=== PATIENT | female | born 1940 | race American Indian/Alaskan Native ===

== ENCOUNTER 2018-12-30 08:24 | Inpatient (IN) | payer MEDICARE, OTHER ==
--- NOTE | 2018-12-30 08:49 | ED PDOC ---
"Arrival/HPI - General Chief Complaint: Pacemaker Problem Time Seen by Provider: 12/30/18 08:27 Historian: Patient - History of Present Illness Narrative History of Present Illness (Text): 12/30/18 08:51 A 78 year old female, whose past medical history includes atrial fibrillation, hypertension, hysterectomy, and CVA, presents to the emergency department complaining of defibrillator dysfunction. Patient reports earlier this morning, she felt 2 sudden shocks and stumbled unto her bed. Mentions she takes Eliquis, and sometimes experiences swelling to legs and ankles bilaterally. Patient denies any dizziness, or any other complaints at this time. PMD: Dr. Alisha Berrios Past Medical History - Provider Review Nursing Documentation Reviewed: Yes - Infectious Disease Hx of Infectious Diseases: None - Reproductive Menopause: Yes - Cardiac Hx Atrial Fibrillation: Yes Hx Hypertension: Yes - Neurological HX Cerebrovascular Accident: Yes - Psychiatric Hx Substance Use: No - Surgical History Hx Hysterectomy: Yes - Anesthesia Hx Anesthesia: No Hx Anesthesia Reactions: No - Suicidal Assessment Feels Threatened In Home Enviroment: No Family/Social History - Physician Review Nursing Documentation Reviewed: Yes Family/Social History: No Known Family HX Smoking Status: Heavy Smoker > 10 Cigarettes Daily Hx Alcohol Use: No Hx Substance Use: No Allergies/Home Meds Allergies/Adverse Reactions: Allergies No Known Allergies Allergy (Unverified 08/05/13 17:42) Home Medications: Home Meds Medication Instructions Recorded Confirmed Enalapril 5 mg DAILY 08/05/13 08/05/13 Vitamin D 50,000 units QWK 08/05/13 08/05/13 Apixaban [Eliquis] 5 mg PO BID 12/30/18 12/31/18 Atorvastatin [Lipitor] 40 mg PO DAILY 12/30/18 12/30/18 Metoprolol Succinate XL [Toprol XL] 25 mg PO DAILY 12/30/18 12/30/18 RX: Dofetilide 125 mcg PO BID 12/30/18 12/30/18 Folic Acid 1 mg PO DAILY 12/31/18 12/31/18 Lisinopril [Zestril] 5 mg PO DAILY 12/31/18 12/31/18 RX: Pantoprazole [Protonix EC Tab] 40 mg PO DAILY 12/31/18 12/31/18 Review of Systems - Physician Review All systems were reviewed & negative as marked: Yes - Review of Systems Cardiovascular: absent: Chest Pain Neurological: absent: Dizziness Physical Exam - Physical Exam Narrative Physical Exam (Text): Gen: VS reviewed, alert, well developed, well nourished, nontoxic, mild distress. ENT: normal pharynx. Eye: EOMI, PERRL. Neck: no JVD, supple, no adenopathy. CV: regular rate, irregularly irregular rhythm, no rubs, no murmur, no gallops, S1, S2, pulses equal and strong. Pulm: no distress, clear to auscultation, no wheeze, no rhonchi, breath sounds equal, no rales. Abd: soft, nontender, no guarding, no rebound, no rigidity, normal bowel sounds. Ext: pitting edema bilaterally to lower extremities. Skin: good color, no rash, no cyanosis. Psych: responds appropriately to questions, normal affect. Neuro: oriented x 3, CN2-12 intact grossly, motor intact, sensation intact. Vital Signs Temp Pulse Resp BP Pulse Ox 12/30/18 08:36 98.0 F 89 18 135/85 99 Medical Decision Making ED Course and Treatment: 12/30/18 08:54 Impression: 78 year old female here for having 2 sudden shocks from her defibrillator. Plan: -- EKG -- Reassess and disposition Progress Notes: 12/30/18 09:38 Cardiology (EPS) Dr. Yash Brito MD Cardiology | Clinical Cardiac Electrophysiology 12/30/18 10:01 ICD device: [employer] -device was placed for v-fib arrest, placed preemptively,hx afib with ablation 2 years ago, hx of inappropriate icd firing [employer] number: [phone] 12/30/18 10:36 I HAVE DISCUSSED THE RHYTHM WITH THE [employer] REP AND HE HAS REVIEWED THE RHYTHM. HE REPORTS THAT THAT THE PATIENT GOES INTO RAPID AFIB IN THE RATE OF 220'S AND THE DEFIBRILLATOR THIS MORNING FIRED TWICE FOR THIS. HE NOTES THERE ARE FREQUENT PVC'S. I HAVE PLACED THE [employer] ELECTRONIC INTERROGATION IN THE CHART FOR REVIEW. [employer] REP ?TAWANNA: [phone] 12/30/18 12:38 12/30/18 12:41 12/30/18 12:[address] santos, tele obs. case d/w dr. gold, cardiology, recommends starting cardizem 60mg TID and will see pt in consultation. 12/30/18 13:25 case discussed with , patient's EPS cardiologistm he has relayed the patient's medication list 12/30/18 18:43 i was called to bedside to evaluate and sudden increase in patient's heart rate in the 180's. patient seen at bedside and offers no physical complaints. 12 lead ekg shows rapid afib at 187 bpm, nml qrs. lopressor 5mg given with no significant change in heart rate- will add cardizem.call placed to dr. santos and copier and printer field technician. 12/30/18 18:52 dr. santos aware of patient new status 12/30/18 19:[address] ibarra to icu - Critical Care Critical Care Minutes: 30 minutes - Scribe Statement The provider has reviewed the documentation as recorded by the Lorie Goldstein Provider Scribe Attestation: All medical record entries made by the Scribe were at my direction and personally dictated by me. I have reviewed the chart and agree that the record accurately reflects my personal performance of the history, physical exam, medical decision making, and the department course for this patient. I have also personally directed, reviewed, and agree with the discharge instructions and disposition. Disposition/Present on Arrival - Present on Arrival Any Indicators Present on Arrival: No History of DVT/PE: No History of Uncontrolled Diabetes: No Urinary Catheter: No History of Decub. Ulcer: No History Surgical Site Infection Following: None - Disposition Have Diagnosis and Disposition been Completed?: Yes Diagnosis: Defibrillator discharge, Atrial fibrillation Disposition: HOSPITALIZED Disposition Time: 12:45 Patient Plan: Admission Patient Problems: Current Active Problems Problem Status Onset Atrial fibrillation Acute Cardiac arrest with ventricular fibrillation Acute Defibrillator discharge Acute Hypertension Acute ICD (implantable cardioverter-defibrillator) in place Acute S/P ablation of atrial fibrillation Acute Condition: GUARDED"
[2018-12-30 09:18] LABS: MEAN CELL VOLUME 84.2 fl (80.0-105.0); MEAN CORPUSCULAR HEMOGLOBIN 25.9 pg (25.0-35.0); MEAN CORPUSCULAR HGB CONC 30.8 g/dl (31.0-37.0); MEAN PLATELET VOLUME 11.2 fl (7.0-11.0); RBC 5.01 10^6/uL (3.5-6.1); RED CELL DISTRIBUTION WIDTH 14.1 % (11.5-14.5); WHITE BLOOD COUNT 6.7 10^3/uL (4.5-11.0)
[2018-12-30 09:21] LABS: ALB/GLOB RATIO 1.3 (1.1-1.8); ALBUMIN 3.9 g/dL (3.0-4.8); ALT/SGPT 14 U/L (7-56); AST/SGOT 28 U/L (14-36); BLOOD UREA NITROGEN 15 mg/dL (7-21); CALCIUM 9.1 mg/dL (8.4-10.5); GFR NON-AFRICAN AMERICAN > 60
[2018-12-30 09:33] LABS: TROPONIN I 0.02 ng/mL
--- NOTE | 2018-12-30 11:11 | CARD ---
APPROVED REPORT Date of service: 12/30/2018 EKG Measurement Heart [id number] <Conclusion> Sinus rhythm with marked sinus arrhythmia with short NV with frequent premature ventricular complexes Incomplete right bundle branch block Left anterior fascicular block Possible Lateral infarct, age undetermined Abnormal ECG
--- NOTE | 2018-12-30 13:30 | RAD ---
Date of service: 12/30/2018 HISTORY: chest pain COMPARISON: No prior. FINDINGS: LUNGS: No active pulmonary disease. PLEURA: No significant pleural effusion identified, no pneumothorax apparent. CARDIOVASCULAR: Mild aortic atherosclerotic calcification present. Heart size within range of normal. In situ bipolar pacemaker/defibrillator. OSSEOUS STRUCTURES: No significant abnormalities. VISUALIZED UPPER ABDOMEN: Normal. OTHER FINDINGS: None. IMPRESSION: No active disease.
[2018-12-30 14:53] VITALS: BMI 23.6
[2018-12-30] MEDS ORDERED: Pneumococcal 23-Valent Vaccine IM ONE (15:33)
[2018-12-30] MEDS ORDERED: Influenza Vaccine 60 mcg/0.5 mL SYR (4YR UP) IM ONE (15:33)
[2018-12-30] MEDS ORDERED: Potassium Chloride 20 mEq ER Tab PO STA (15:35)
[2018-12-30] MEDS ORDERED: Potassium Chloride 20 mEq/15 ml LIQ UD PO STA (17:00)
--- NOTE | 2018-12-30 17:41 | CON ---
DATE: 12/30/2018 CARDIOLOGY CONSULTATION HISTORY: The patient is a 78-year-old woman, who presents with defibrillator shocking her twice. Interrogation of the defibrillator revealed rapid atrial fibrillation. PAST MEDICAL HISTORY: The patient's past medical history includes paroxysmal atrial fibrillation, hypertension, as well as a previous CVA. In addition, the patient is on cholesterol medications suggesting that she has had a long, long history of hypercholesterolemia. She is currently on Eliquis at home for presumably atrial fibrillation. She denies chest pain, denies shortness of breath. SOCIAL HISTORY: The patient does not smoke. REVIEW OF SYSTEMS: Fourteen-point review of systems was reviewed. Other than some mild pedal edema, there are no other cardiac complaints. PHYSICAL EXAMINATION: VITAL SIGNS: Blood pressure is 132/61, the heart rate is normal sinus rhythm in the 70s. NECK: Negative JVD. LUNGS: Without rales. CARDIAC: Heart rate S1, S2. EXTREMITIES: Trace edema. EKG shows no acute changes, normal sinus rhythm with no acute changes. Hemoglobin is 13. BUN and creatinine are normal. Potassium is 3.6 with a magnesium of 2.2. Troponins are negative x2. Glucose is 138. IMPRESSION: 1. Defibrillator shock secondary to rapid atrial fibrillation. 2. Probable cardiomyopathy. 3. History of implantable cardioverter defibrillator placement. 4. Number for history of cerebrovascular accident. 5. Paroxysmal atrial fibrillation. 6. Diabetes mellitus. 7. Hypercholesterolemia. PLAN: Given these findings, we will increase her beta-blockers from 25-50 daily. In addition, we will replace her potassium. Echocardiogram has been ordered for the morning. Ruben Bailey MD
[2018-12-30] MEDS ORDERED: Metoprolol 1 mg/ml Inj ONE (18:35)
[2018-12-30] MEDS ORDERED: Metoprolol 1 mg/ml Inj IVP STA (18:42)
[2018-12-30] MEDS ORDERED: diltiaZEM IVPB 100mg in NS 100 ML IV PRN (18:42)
[2018-12-30] MEDS: diltiaZEM IVPB 100mg in NS 100 ML IV PRN ×2 (19:34→20:03)
--- NOTE | 2018-12-30 20:13 | CP.PCM.CON ---
<Zack Collins - Last Filed: 12/30/18 20:36> History of Present Illness - History of Present Illness History of Present Illness: ICU Consultation CC: Rapid Atrial Fibrillation/Defibrillator Firing HPI: Mrs. Jones is a 78 year old female with a past medical history significant for atrial fibrillation s/p ablation (on Eliquis), ventricular fibrillation s/p defibrillator (on Dofetilide), previous CVA, HTN, and HLD who presented after her ICD fired twice this morning. Patient reports that earlier this morning while resting, she suddenly felt her ICD fire twice without any symptoms prior to this or after this. She does note that yesterday she walked further than she normally does after having a heated argument with her sister. She reports that her ICD has gone off in the past but she reports that she does not know why that the ICD went off on those prior occasions. Patient was orig inally admitted to the telemetry floor but while being held in the ED, she went into atrial fibrillation with RVR. Based on this, patient was started on Cardizem gtt. She is currently resting comfortably without complaints and 12 point ROS is unremarkable. PMH: As stated above PSH: Hysterectomy, Catheter Ablation, Defibrillator Placement Family History: Denies Social History: Former smoker with ~20 year pack smoking history; Denies any alcohol or illicit drug use; Lives at home with her sister; Independent with ADL's Allergies: NKDA Home Medications: As per JAN PMD: Dr. Gottlieb Review of Systems - Review of Systems Review of Systems: As stated in HPI, otherwise negative Past Patient History - Infectious Disease Hx of Infectious Diseases: None - Past Social History Smoking Status: Heavy Smoker > 10 Cigarettes Daily - CARDIAC Hx Atrial Fibrillation: Yes Hx Hypertension: Yes - NEUROLOGICAL HX Cerebrovascular Accident: Yes - MUSCULOSKELETAL/RHEUMATOLOGICAL Hx Falls: No - PSYCHIATRIC Hx Substance Use: No - SURGICAL HISTORY Hx Hysterectomy: Yes - ANESTHESIA Hx Anesthesia: No Hx Anesthesia Reactions: No Meds Allergies/Adverse Reactions: Allergies Allergy/AdvReac Type Severity Reaction Status Date / Time No Known Allergies Allergy Unverified 08/05/13 17:42 - Medications Medications: Current Medications Apixaban (Eliquis) 5 mg PO DAILY DEBORAH; Protocol Atorvastatin Calcium (Lipitor) 40 mg PO DAILY DEBORAH diltiaZEM IVPB 100mg in NS (Cardizem 100mg In Ns) 100 mls @ 5 mls/hr IV .Q20H PRN; Protocol PRN Reason: TITRATE PER MD ORDER Last Admin: 12/30/18 19:34 Dose: 5 mg/hr, 5 mls/hr Metoprolol Succinate (Toprol Xl) 50 mg PO DAILY DEBORAH Non-Formulary Medication (Dofetilide [Dofetilide]) 125 mcg PO BID DEBORAH Physical Exam - Constitutional Appears: Non-toxic, No Acute Distress - Head Exam Head Exam: ATRAUMATIC, NORMOCEPHALIC - Eye Exam Eye Exam: EOMI, Normal appearance, PERRL. absent: Conjunctival injection, Nystagmus, Periorbital swelling, Periorbital tenderness, Scleral icterus Pupil Exam: NORMAL ACCOMODATION, PERRL. absent: Fixed, Irregular, Miosis, Mydriatic, Unequal - ENT Exam ENT Exam: Mucous Membranes Moist, Normal Exam - Neck Exam Neck exam: Positive for: Full Rom, Normal Inspection - Respiratory Exam Respiratory Exam: Clear to Auscultation Bilateral, NORMAL BREATHING PATTERN - Cardiovascular Exam Cardiovascular Exam: Tachycardia, Irregular Rhythm - GI/Abdominal Exam GI & Abdominal Exam: Normal Bowel Sounds, Soft. absent: Tenderness - Extremities Exam Extremities exam: Positive for: normal capillary refill, normal inspection, pedal pulses present. Negative for: calf tenderness, pedal edema - Neurological Exam Neurological exam: Alert, CN II-XII Intact, Oriented x3, Reflexes Normal - Psychiatric Exam Psychiatric exam: Normal Affect, Normal Mood - Skin Skin Exam: Dry, Intact, Normal Color, Warm Results - Vital Signs Recent Vital Signs: Last Vital Signs Temp 98 F 12/30/18 19:00 Pulse 171 H 12/30/18 19:29 Resp 20 12/30/18 19:29 BP 117/67 12/30/18 19:00 Pulse Ox 99 12/30/18 19:29 - Labs Result Diagrams: 12/30/18 09:06 12/30/18 09:06 Labs: Laboratory Results - last 24 hr 12/30/18 12/30/18 12/30/18 09:06 09:06 09:06 WBC 6.7 RBC 5.01 Hgb 13.0 Hct 42.2 MCV 84.2 MCH 25.9 MCHC 30.8 L RDW 14.1 Plt Count 388 MPV 11.2 H APTT 39.3 H Sodium 144 Potassium 3.5 L Chloride 109 H Carbon Dioxide 28 Anion Gap 10 BUN 15 Creatinine 0.7 Est GFR ( Amer) > 60 Est GFR (Non-Af Amer) > 60 Random Glucose 138 H Calcium 9.1 Phosphorus Magnesium Total Bilirubin 0.5 AST 28 ALT 14 Alkaline Phosphatase 96 Lactate Dehydrogenase 575 Total Creatine Kinase 99 Troponin I 0.02 Total Protein 6.9 Albumin 3.9 Globulin 3.0 Albumin/Globulin Ratio 1.3 12/30/18 12/30/18 12/30/18 13:37 16:01 19:28 WBC RBC Hgb Hct MCV MCH MCHC RDW Plt Count MPV APTT Sodium Potassium Chloride Carbon Dioxide Anion Gap BUN Creatinine Est GFR ( Amer) Est GFR (Non-Af Amer) Random Glucose Calcium Phosphorus 2.7 Magnesium 2.2 Total Bilirubin AST ALT Alkaline Phosphatase Lactate Dehydrogenase Total Creatine Kinase Troponin I 0.03 D Total Protein Albumin Globulin Albumin/Globulin Ratio Assessment & Plan - Assessment and Plan (Free Text) Assessment: 78 year old female with a past medical history significant for atrial fibrillation s/p ablation (on Eliquis), ventricular fibrillation s/p defibrillator (on Dofetilide), previous CVA, HTN, and HLD who presented after her ICD fired twice this morning. Plan: 1. Rapid Atrial Fibrillation -Started on Cardizem gtt at 5mg/hr -Started on Toprol XL -Continue home Eliquis -ICU monitoring -Cardiology consulted and aware present clinical condition; All recommendations appreciated GI Prophylaxis: Pepcid DVT Prophylaxis: Eliquis Patient seen and case discussed with attending, Dr. Herrera. Zack Collins PGY2 - Date & Time Date: 12/30/18 Time: 20:52 <Everardo Herrera - Last Filed: 12/30/18 22:09> Meds - Medications Medications: Current Medications Apixaban (Eliquis) 5 mg PO DAILY DEBORAH; Protocol Atorvastatin Calcium (Lipitor) 40 mg PO DAILY DEBORAH Famotidine (Pepcid) 40 mg PO HS DEBORAH diltiaZEM IVPB 100mg in NS (Cardizem 100mg In Ns) 100 mls @ 5 mls/hr IV .Q20H PRN; Protocol PRN Reason: TITRATE PER MD ORDER Last Admin: 12/30/18 20:03 Dose: 10 mg/hr, 10 mls/hr Metoprolol Succinate (Toprol Xl) 50 mg PO DAILY [facility] Non-Formulary Medication (Dofetilide [Dofetilide]) 125 mcg PO BID [facility] Results - Vital Signs Recent Vital Signs: Last Vital Signs Temp 98 F 12/30/18 19:00 Pulse 118 H 12/30/18 20:41 Resp 18 12/30/18 20:41 BP 129/77 12/30/18 20:41 Pulse Ox 100 12/30/18 20:41 - Labs Result Diagrams: 12/30/18 09:06 12/30/18 09:06 Labs: Laboratory Results - last 24 hr 12/30/18 12/30/18 12/30/18 09:06 09:06 09:06 WBC 6.7 RBC 5.01 Hgb 13.0 Hct 42.2 MCV 84.2 MCH 25.9 MCHC 30.8 L RDW 14.1 Plt Count 388 MPV 11.2 H APTT 39.3 H Sodium 144 Potassium 3.5 L Chloride 109 H Carbon Dioxide 28 Anion Gap 10 BUN 15 Creatinine 0.7 Est GFR ( Amer) > 60 Est GFR (Non-Af Amer) > 60 Random Glucose 138 H Calcium 9.1 Phosphorus Magnesium Total Bilirubin 0.5 AST 28 ALT 14 Alkaline Phosphatase 96 Lactate Dehydrogenase 575 Total Creatine Kinase 99 Troponin I 0.02 Total Protein 6.9 Albumin 3.9 Globulin 3.0 Albumin/Globulin Ratio 1.3 TSH 3rd Generation 12/30/18 12/30/18 12/30/18 13:37 16:01 19:28 WBC RBC Hgb Hct MCV MCH MCHC RDW Plt Count MPV APTT Sodium Potassium Chloride Carbon Dioxide Anion Gap BUN Creatinine Est GFR ( Amer) Est GFR (Non-Af Amer) Random Glucose Calcium Phosphorus 2.7 Magnesium 2.2 Total Bilirubin AST ALT Alkaline Phosphatase Lactate Dehydrogenase Total Creatine Kinase Troponin I 0.03 D Total Protein Albumin Globulin Albumin/Globulin Ratio TSH 3rd Generation 12/30/18 19:28 WBC RBC Hgb Hct MCV MCH MCHC RDW Plt Count MPV APTT Sodium Potassium Chloride Carbon Dioxide Anion Gap BUN Creatinine Est GFR ( Amer) Est GFR (Non-Af Amer) Random Glucose Calcium Phosphorus Magnesium Total Bilirubin AST ALT Alkaline Phosphatase Lactate Dehydrogenase Total Creatine Kinase Troponin I Total Protein Albumin Globulin Albumin/Globulin Ratio TSH 3rd Generation < 0.02 L Attending/Attestation - Attestation I have personally seen and examined this patient.: Yes I have fully participated in the care of the patient.: Yes I have reviewed all pertinent clinical information: Yes Notes (Text): 12/30/18 21:51 Patient was seen when she was in the ER bd # 4. Asymptomatic, but heart rate going to 130's, rhythm was atrial fibrillation. Events in the ER were noted. Medical record was reviewed. Agree with consult note. Will keep in CCU for monitoring. CCT:30Minutes. 12/30/18 22:09
--- NOTE | 2018-12-31 00:20 | HP ---
DATE OF EXAM: 12/30/2018 HISTORY OF PRESENT ILLNESS: I was called on through the emergency room to see this nice young lady. She is a 78-year-old -[place] female who presents to the emergency room complaining of defibrillator dysfunction. She had two sudden shocks stumbled on to her bed. She has swelling of the legs at times. She is a 78-year-old with history of atrial fibrillation, hypertension, hysterectomy, CVA. She has defibrillator. It has been dysfunctioning and getting shocks. She has hypertension. She has CVA. FAMILY HISTORY: She has no known family history. SOCIAL HISTORY: Still smokes cigarettes. No alcohol. No drugs. ALLERGIES: NO KNOWN DRUG ALLERGIES. MEDICATIONS: She is on Vasotec, vitamin D, Eliquis. REVIEW OF SYSTEMS: GENERAL: Well-developed, well-nourished. She is alert. She is comfortable. HEENT: No vision or hearing changes. No sore throat. CHEST: No chest pain. No dizziness, but felt the change in her chest like quick pace feeling in her chest, not a palpitation, just felt like a vibration in her chest. ABDOMEN: Soft, nontender, positive bowel sounds. No abdominal pain. No nausea or vomiting. EXTREMITIES: She can move all four extremities. SKIN: No skin issues that she knows of. PHYSICAL EXAMINATION VITAL SIGNS: She has 98 temperature, 89 pulse, 18 respiratory rate, 135/85 blood pressure, 99% O2 sat on room air. GENERAL: Well-developed, well-nourished, nontoxic, comfortable at this time. HEENT: Head is atraumatic, normocephalic. Extraocular muscles are intact. Pupils are equal, reactive to light. NECK: Supple. No JVD. HEART: Regular rate. Normal S1 and S2. LUNGS: Decreased breath sounds. Poor inspiration. No wheezes or rhonchi. ABDOMEN: Soft, nontender. Positive bowel sounds. No guarding. No rebound. No CVA tenderness. EXTREMITIES: Have no edema. SKIN: Has fair turgor. No apparent rashes appreciative or ulcers appreciative at this time. NEUROLOGIC: Calm, normal affect. Cranial nerves II through XII grossly intact. Grossly motor intact. LABORATORY DATA: She has multiple tests done. Chest x-ray was clear. EKG showed sinus rhythm with marked sinus with sharp NE with frequent premature ventricular complex with incomplete right bundle branch block, left anterior fascicular block, lateral infarct age undetermined. She has sodium 144, potassium 3.5, I replaced the potassium, BUN 15, creatinine 0.7, GFR is 62, sugar is 138, I am checking the hemoglobin A1c, calcium is 0.1, magnesium is 2.2, total bili is 0.5, AST is 28, ALT is 14, alk phos 76, lactate dehydrogenase is 575, total creatine kinase is 99, troponin I is 0.02, total protein 6.9, albumin 3.9, globulin 3. A PTT is 39.3. IMPRESSION: She is here for defibrillator firing, chest pain. She will be here, we are checking out the troponins. She had a consult with blankmaker. To be on telemetry observation. Rick Gottlieb DO MTDD
[2018-12-31] MEDS: diltiaZEM IVPB 100mg in NS 100 ML IV PRN (05:08)
[2018-12-31 07:21] LABS: HEMOGLOBIN 12.5 g/dL (12.0-16.0); MEAN CELL VOLUME 84.6 fl (80.0-105.0); MEAN CORPUSCULAR HGB CONC 29.6 g/dl (31.0-37.0); MEAN PLATELET VOLUME 11.1 fl (7.0-11.0); RED CELL DISTRIBUTION WIDTH 14.4 % (11.5-14.5); WHITE BLOOD COUNT 6.2 10^3/uL (4.5-11.0)
[2018-12-31 07:31] LABS: ALB/GLOB RATIO 1.1 (1.1-1.8); ALBUMIN 3.6 g/dL (3.0-4.8); ALT/SGPT 16 U/L (7-56); AST/SGOT 31 U/L (14-36); BLOOD UREA NITROGEN 16 mg/dL (7-21); CALCIUM 9.1 mg/dL (8.4-10.5); GFR NON-AFRICAN AMERICAN > 60
--- NOTE | 2018-12-31 07:32 | CP.CCUPN ---
<Jean Terry - Last Filed: 12/31/18 14:53> CCU Subjective - Physician Review Subjective (Free Text): 12/31/18 09:34 Patient seen and examined this AM at bedside. Patient noted to be resting comfortably in bed with elevated heart rate. Overnight events include elevated heart rate requiring increased doses of cardizem and lopressor. Patient denies chest pain, shortness of breath, abdominal pain, fever, chills. CCU Objective - Vital Signs / Intake & Output Vital Signs (Last 4 hours): Vital Signs Temp Pulse Resp BP Pulse Ox 12/31/18 07:20 126 H 16 100 12/31/18 07:10 117 H 18 100 12/31/18 07:08 123 H 18 124/53 L 100 12/31/18 07:07 131 H 18 117/64 100 12/31/18 07:06 120 H 19 124/75 100 12/31/18 07:05 137 H 19 115/52 L 100 12/31/18 07:04 110 H 16 118/68 100 12/31/18 07:00 118 H 16 100 12/31/18 06:50 122 H 11 L 100 12/31/18 06:40 143 H 16 100 12/31/18 06:33 125 H 15 115/57 L 100 12/31/18 06:30 112 H 16 100 12/31/18 06:20 125 H 27 H 100 12/31/18 06:10 109 H 100 12/31/18 06:00 107 H 20 100 12/31/18 05:50 93 H 13 100 12/31/18 05:40 97 H 12 100 12/31/18 05:32 95 H 14 122/63 100 12/31/18 05:30 111 H 14 100 12/31/18 05:20 91 H 15 100 12/31/18 05:10 99 H 15 100 12/31/18 05:00 119 H 16 100 12/31/18 04:50 121 H 41 H 100 12/31/18 04:40 104 H 100 12/31/18 04:33 92 H 18 106/44 L 100 12/31/18 04:30 88 15 100 12/31/18 04:20 89 16 100 12/31/18 04:10 90 14 100 12/31/18 04:00 97.9 F 85 12 100 12/31/18 03:50 77 16 100 12/31/18 03:40 77 15 100 Intake and Output (Last 8hrs): Intake & Output 12/30/18 12/31/18 12/31/18 22:59 06:59 14:59 Intake Total 2.5 220 Output Total 300 Balance 2.5 -80 Weight 122 lb 6 oz Intake: IV 2.5 100 Oral 120 Output: Urine 300 Urine, Voided 300 Other: # Bowel Movements 0 - Physical Exam Head: Positive for: Atraumatic, Normocephalic Pupils: Positive for: PERRL Extroacular Muscles: Positive for: EOMI Conjunctiva: Positive for: Normal Mouth: Positive for: Moist Mucous Membranes Neck: Positive for: Normal Range of Motion Respiratory/Chest: Positive for: Clear to Auscultation. Negative for: Rales, Rhonchi Cardiovascular: Positive for: Irregular Rhythm, Tachycardic. Negative for: Rub Abdomen: Positive for: Normal Bowel Sounds. Negative for: Tenderness, Distention Upper Extremity: Positive for: Normal Inspection. Negative for: Cyanosis, Edema Lower Extremity: Positive for: Normal Inspection. Negative for: Edema Neurological: Positive for: GCS=15, CN II-XII Intact, Speech Normal, Motor Func Grossly Intact, Normal Sensory Function Skin: Positive for: Warm, Dry Psychiatric: Positive for: Alert, Oriented x 3, Normal Insight - Medications Active Medications: Active Medications Generic Name Dose Route Start Last Admin Trade Name Freq PRN Reason Stop Dose Admin Apixaban 5 mg 12/31/18 10:00 Eliquis PO DAILY [facility] Protocol Atorvastatin Calcium 40 mg 12/31/18 10:00 Lipitor PO DAILY [facility] Famotidine 40 mg 12/30/18 22:00 12/30/18 22:27 Pepcid PO 40 mg HS DEBORAH Administration diltiaZEM IVPB 100mg in NS 100 mls @ 5 mls/hr 12/30/18 19:30 12/31/18 05:10 Cardizem 100mg In Ns IV 15 mg/hr .Q20H PRN 15 mls/hr TITRATE PER MD ORDER Titration Protocol 5 MG/HR Metoprolol Succinate 50 mg 12/31/18 10:00 Toprol Xl PO DAILY [facility] Non-Formulary Medication 125 mcg 12/30/18 18:00 Dofetilide [Dofetilide] PO BID DEBORAH - Patient Studies Lab Studies: Lab Studies 12/31/18 12/30/18 12/30/18 Range/Units 06:45 23:45 19:28 WBC (4.5-11.0) 10^3/uL RBC (3.5-6.1) 10^6/uL Hgb (12.0-16.0) g/dL Hct (36.0-48.0) % MCV (80.0-105.0) fl MCH (25.0-35.0) pg MCHC (31.0-37.0) g/dl RDW (11.5-14.5) % Plt Count (120.0-450.0) 10^3/uL MPV (7.0-11.0) fl APTT (26.9-38.3) Seconds Sodium 143 (132-148) mmol/L Potassium 4.2 (3.6-5.0) mmol/L Chloride 111 H (98-107) mmol/L Carbon Dioxide 28 (21-33) mmol/L Anion Gap 8 L (10-20) BUN 16 (7-21) mg/dL Creatinine 0.7 (0.7-1.2) mg/dl Est GFR ( Amer) > 60 Est GFR (Non-Af Amer) > 60 Random Glucose 112 H (70-110) mg/dL Calcium 9.1 (8.4-10.5) mg/dL Phosphorus (2.5-4.5) mg/dL Magnesium (1.7-2.2) mg/dL Total Bilirubin 0.6 (0.2-1.3) mg/dL AST 31 (14-36) U/L ALT 16 (7-56) U/L Alkaline Phosphatase 96 (38-126) U/L Lactate Dehydrogenase (333-699) U/L Total Creatine Kinase (35-230) U/L Troponin I 0.03 ng/mL Total Protein 6.8 (5.8-8.3) g/dL Albumin 3.6 (3.0-4.8) g/dL Globulin 3.2 gm/dL Albumin/Globulin Ratio 1.1 (1.1-1.8) TSH 3rd Generation < 0.02 L (0.46-4.68) mIU/mL 0212/30/18 12/30/18 Range/Units 19:28 16:01 13:37 WBC (4.5-11.0) 10^3/uL RBC (3.5-6.1) 10^6/uL Hgb (12.0-16.0) g/dL Hct (36.0-48.0) % MCV (80.0-105.0) fl MCH (25.0-35.0) pg MCHC (31.0-37.0) g/dl RDW (11.5-14.5) % Plt Count (120.0-450.0) 10^3/uL MPV (7.0-11.0) fl APTT (26.9-38.3) Seconds Sodium (132-148) mmol/L Potassium (3.6-5.0) mmol/L Chloride (98-107) mmol/L Carbon Dioxide (21-33) mmol/L Anion Gap (10-20) BUN (7-21) mg/dL Creatinine (0.7-1.2) mg/dl Est GFR ( Amer) Est GFR (Non-Af Amer) Random Glucose (70-110) mg/dL Calcium (8.4-10.5) mg/dL Phosphorus 2.7 (2.5-4.5) mg/dL Magnesium 2.2 (1.7-2.2) mg/dL Total Bilirubin (0.2-1.3) mg/dL AST (14-36) U/L ALT (7-56) U/L Alkaline Phosphatase (38-126) U/L Lactate Dehydrogenase (333-699) U/L Total Creatine Kinase (35-230) U/L Troponin I 0.03 D ng/mL Total Protein (5.8-8.3) g/dL Albumin (3.0-4.8) g/dL Globulin gm/dL Albumin/Globulin Ratio (1.1-1.8) TSH 3rd Generation (0.46-4.68) mIU/mL 12/30/18 12/30/18 12/30/18 Range/Units 09:06 09:06 09:06 WBC 6.7 (4.5-11.0) 10^3/uL RBC 5.01 (3.5-6.1) 10^6/uL Hgb 13.0 (12.0-16.0) g/dL Hct 42.2 (36.0-48.0) % MCV 84.2 (80.0-105.0) fl MCH 25.9 (25.0-35.0) pg MCHC 30.8 L (31.0-37.0) g/dl RDW 14.1 (11.5-14.5) % Plt Count 388 (120.0-450.0) 10^3/uL MPV 11.2 H (7.0-11.0) fl APTT 39.3 H (26.9-38.3) Seconds Sodium 144 (132-148) mmol/L Potassium 3.5 L (3.6-5.0) mmol/L Chloride 109 H (98-107) mmol/L Carbon Dioxide 28 (21-33) mmol/L Anion Gap 10 (10-20) BUN 15 (7-21) mg/dL Creatinine 0.7 (0.7-1.2) mg/dl Est GFR ( Amer) > 60 Est GFR (Non-Af Amer) > 60 Random Glucose 138 H (70-110) mg/dL Calcium 9.1 (8.4-10.5) mg/dL Phosphorus (2.5-4.5) mg/dL Magnesium (1.7-2.2) mg/dL Total Bilirubin 0.5 (0.2-1.3) mg/dL AST 28 (14-36) U/L ALT 14 (7-56) U/L Alkaline Phosphatase 96 (38-126) U/L Lactate Dehydrogenase 575 (333-699) U/L Total Creatine Kinase 99 (35-230) U/L Troponin I 0.02 ng/mL Total Protein 6.9 (5.8-8.3) g/dL Albumin 3.9 (3.0-4.8) g/dL Globulin 3.0 gm/dL Albumin/Globulin Ratio 1.3 (1.1-1.8) TSH 3rd Generation (0.46-4.68) mIU/mL Laboratory Results - last 24 hr 12/30/18 12/30/18 12/30/18 09:06 09:06 09:06 WBC 6.7 RBC 5.01 Hgb 13.0 Hct 42.2 MCV 84.2 MCH 25.9 MCHC 30.8 L RDW 14.1 Plt Count 388 MPV 11.2 H APTT 39.3 H Sodium 144 Potassium 3.5 L Chloride 109 H Carbon Dioxide 28 Anion Gap 10 BUN 15 Creatinine 0.7 Est GFR ( Amer) > 60 Est GFR (Non-Af Amer) > 60 Random Glucose 138 H Calcium 9.1 Phosphorus Magnesium Total Bilirubin 0.5 AST 28 ALT 14 Alkaline Phosphatase 96 Lactate Dehydrogenase 575 Total Creatine Kinase 99 Troponin I 0.02 Total Protein 6.9 Albumin 3.9 Globulin 3.0 Albumin/Globulin Ratio 1.3 TSH 3rd Generation 12/30/18 12/30/18 12/30/18 13:37 16:01 19:28 WBC RBC Hgb Hct MCV MCH MCHC RDW Plt Count MPV APTT Sodium Potassium Chloride Carbon Dioxide Anion Gap BUN Creatinine Est GFR ( Amer) Est GFR (Non-Af Amer) Random Glucose Calcium Phosphorus 2.7 Magnesium 2.2 Total Bilirubin AST ALT Alkaline Phosphatase Lactate Dehydrogenase Total Creatine Kinase Troponin I 0.03 D Total Protein Albumin Globulin Albumin/Globulin Ratio TSH 3rd Generation 12/30/18 12/30/18 12/31/18 19:28 23:45 06:45 WBC RBC Hgb Hct MCV MCH MCHC RDW Plt Count MPV APTT Sodium 143 Potassium 4.2 Chloride 111 H Carbon Dioxide 28 Anion Gap 8 L BUN 16 Creatinine 0.7 Est GFR ( Amer) > 60 Est GFR (Non-Af Amer) > 60 Random Glucose 112 H Calcium 9.1 Phosphorus Magnesium Total Bilirubin 0.6 AST 31 ALT 16 Alkaline Phosphatase 96 Lactate Dehydrogenase Total Creatine Kinase Troponin I 0.03 Total Protein 6.8 Albumin 3.6 Globulin 3.2 Albumin/Globulin Ratio 1.1 TSH 3rd Generation < 0.02 L Radiology Impressions: Radiology Impressions Chest X-Ray 12/30/18 09:43 IMPRESSION: No active disease. EKG/Cardiology Studies: Cardiology / EKG Studies 12/30/18 09:00 ELECTROCARDIOGRAM Stat Comment: Reason For Exam: defibrillator fired 12/30/18 18:30 EKG [ELECTROCARDIOGRAM] Stat Comment: Reason For Exam: CHEST PAIN 12/30/18 18:58 EKG [ELECTROCARDIOGRAM] Stat Comment: Reason For Exam: CHEST PAIN Review of Systems - Review of Systems All systems: reviewed and no additional remarkable complaints except (as mentioned in HPI) Critical Care Progress Note - Nutrition Nutrition: Nutrition Category Date Time Status Heart Healthy Diet [DIET] Diets 12/30/18 Breakfast Active Assessment/Plan - Assessment and Plan (Free Text) Assessment: 78 year old femlae with past medical history of a fib s/p ablation rate control with toprol xl and anticoagulated with eliquis, ventricular fibrillation s/p defibrillator, previous CVA without residual deficit, HTN, HLD who is admitted for uncontrolled atrial fibrillation with RVR Plan: Neuro: AAOx3 Monitor Mentation Pulm: Supplemental oxygen, maintain SaO2 >90% Cardio: Atrial fibrillation with RVR on eliquis -Permanent atrial fibrillation -Echocardiogram ordered pending results -Continue eliquis for anticoagluation -Continue Cardizem gtt, metoprolol 50mg BID -Device interrogated yesterday evening -Cardiology consulted and following patient - Start PO cardizem 30 TID with plans to titrate off cardizem gtt HTN, HLD -Continue Toprol 50 bid, continue statin -Maintain MAP >65mmHg GI: HHD GI prophylaxis Renal: Maintain euvolemia, monitor UOP Monitor and replete electrolytes as necessary Endo: Hyperthyroidism -TSH level 0.02 -f/u Free T3, T4, thyroglobulin antibody, thyroid peroxidase antibody -Endo consult with Dr. iVcki Min -Holding thyroid supplementation at this time until endo eval Maintian blood glucose 140-180 ID: Afebrile, No leukocytosis GI prophylaxis DVT prophylaxis Code Status: Full Code Patient seen, case and plan discussed with attending Dr. Peraza <Wolfgang Peraza - Last Filed: 12/31/18 14:56> CCU Objective - Vital Signs / Intake & Output Intake and Output (Last 8hrs): Intake & Output 12/30/18 12/31/18 12/31/18 22:59 06:59 14:59 Intake Total 2.5 220 Output Total 300 Balance 2.5 -80 Weight 122 lb 6 oz Intake: IV 2.5 100 Oral 120 Output: Urine 300 Urine, Voided 300 Other: # Bowel Movements 0 - Medications Active Medications: Active Medications Generic Name Dose Route Start Last Admin Trade Name Freq PRN Reason Stop Dose Admin Apixaban 5 mg 12/31/18 11:39 Eliquis PO Q12 [facility] Protocol Atorvastatin Calcium 40 mg 12/31/18 10:00 12/31/18 10:17 Lipitor PO 40 mg DAILY [facility] Administration Diltiazem HCl 60 mg 12/31/18 14:00 12/31/18 13:26 Cardizem PO 60 mg TID DEBORAH Administration Famotidine 40 mg 12/30/18 22:00 12/30/18 22:27 Pepcid PO 40 mg HS DEBORAH Administration diltiaZEM IVPB 100mg in NS 100 mls @ 5 mls/hr 12/30/18 19:30 12/31/18 05:10 Cardizem 100mg In Ns IV 15 mg/hr .Q20H PRN 15 mls/hr TITRATE PER MD ORDER Titration Protocol 5 MG/HR Metoprolol Succinate 50 mg 12/31/18 10:00 12/31/18 08:12 Toprol Xl PO 50 mg DAILY [facility]BORAH Administration Non-Formulary Medication 125 mcg 12/30/18 18:00 12/31/18 10:31 Dofetilide [Dofetilide] PO Not Given BID DBEORAH - Patient Studies Lab Studies: Lab Studies 12/31/18 12/31/18 12/31/18 Range/Units 10:15 06:45 06:45 WBC (4.5-11.0) 10^3/uL RBC (3.5-6.1) 10^6/uL Hgb (12.0-16.0) g/dL Hct (36.0-48.0) % MCV (80.0-105.0) fl MCH (25.0-35.0) pg MCHC (31.0-37.0) g/dl RDW (11.5-14.5) % Plt Count (120.0-450.0) 10^3/uL MPV (7.0-11.0) fl Sodium (132-148) mmol/L Potassium (3.6-5.0) mmol/L Chloride (98-107) mmol/L Carbon Dioxide (21-33) mmol/L Anion Gap (10-20) BUN (7-21) mg/dL Creatinine (0.7-1.2) mg/dl Est GFR ( Amer) Est GFR (Non-Af Amer) Random Glucose (70-110) mg/dL Calcium (8.4-10.5) mg/dL Phosphorus 3.1 (2.5-4.5) mg/dL Magnesium 2.2 (1.7-2.2) mg/dL Total Bilirubin (0.2-1.3) mg/dL AST (14-36) U/L ALT (7-56) U/L Alkaline Phosphatase (38-126) U/L Troponin I ng/mL Total Protein (5.8-8.3) g/dL Albumin (3.0-4.8) g/dL Globulin gm/dL Albumin/Globulin Ratio (1.1-1.8) Free T4 1.25 (0.78-2.19) ng/dL Thyroxine (T4) 9.8 (5.5-11.0) ug/dL Free T3 pg/mL 5.58 H (2.77-5.27) pg/mL Total T3 1.59 (0.97-1.69) ng/mL TSH 3rd Generation (0.46-4.68) mIU/mL 12/31/18 12/31/18 12/30/18 Range/Units 06:45 06:45 23:45 WBC 6.2 (4.5-11.0) 10^3/uL RBC 5.00 (3.5-6.1) 10^6/uL Hgb 12.5 (12.0-16.0) g/dL Hct 42.3 (36.0-48.0) % MCV 84.6 (80.0-105.0) fl MCH 25.0 (25.0-35.0) pg MCHC 29.6 L (31.0-37.0) g/dl RDW 14.4 (11.5-14.5) % Plt Count 355 (120.0-450.0) 10^3/uL MPV 11.1 H (7.0-11.0) fl Sodium 143 (132-148) mmol/L Potassium 4.2 (3.6-5.0) mmol/L Chloride 111 H (98-107) mmol/L Carbon Dioxide 28 (21-33) mmol/L Anion Gap 8 L (10-20) BUN 16 (7-21) mg/dL Creatinine 0.7 (0.7-1.2) mg/dl Est GFR ( Amer) > 60 Est GFR (Non-Af Amer) > 60 Random Glucose 112 H (70-110) mg/dL Calcium 9.1 (8.4-10.5) mg/dL Phosphorus (2.5-4.5) mg/dL Magnesium (1.7-2.2) mg/dL Total Bilirubin 0.6 (0.2-1.3) mg/dL AST 31 (14-36) U/L ALT 16 (7-56) U/L Alkaline Phosphatase 96 (38-126) U/L Troponin I 0.03 ng/mL Total Protein 6.8 (5.8-8.3) g/dL Albumin 3.6 (3.0-4.8) g/dL Globulin 3.2 gm/dL Albumin/Globulin Ratio 1.1 (1.1-1.8) Free T4 (0.78-2.19) ng/dL Thyroxine (T4) (5.5-11.0) ug/dL Free T3 pg/mL (2.77-5.27) pg/mL Total T3 (0.97-1.69) ng/mL TSH 3rd Generation (0.46-4.68) mIU/mL 12/30/18 12/30/18 12/30/18 Range/Units 19:28 19:28 16:01 WBC (4.5-11.0) 10^3/uL RBC (3.5-6.1) 10^6/uL Hgb (12.0-16.0) g/dL Hct (36.0-48.0) % MCV (80.0-105.0) fl MCH (25.0-35.0) pg MCHC (31.0-37.0) g/dl RDW (11.5-14.5) % Plt Count (120.0-450.0) 10^3/uL MPV (7.0-11.0) fl Sodium (132-148) mmol/L Potassium (3.6-5.0) mmol/L Chloride (98-107) mmol/L Carbon Dioxide (21-33) mmol/L Anion Gap (10-20) BUN (7-21) mg/dL Creatinine (0.7-1.2) mg/dl Est GFR ( Amer) Est GFR (Non-Af Amer) Random Glucose (70-110) mg/dL Calcium (8.4-10.5) mg/dL Phosphorus 2.7 (2.5-4.5) mg/dL Magnesium (1.7-2.2) mg/dL Total Bilirubin (0.2-1.3) mg/dL AST (14-36) U/L ALT (7-56) U/L Alkaline Phosphatase (38-126) U/L Troponin I 0.03 D ng/mL Total Protein (5.8-8.3) g/dL Albumin (3.0-4.8) g/dL Globulin gm/dL Albumin/Globulin Ratio (1.1-1.8) Free T4 (0.78-2.19) ng/dL Thyroxine (T4) (5.5-11.0) ug/dL Free T3 pg/mL (2.77-5.27) pg/mL Total T3 (0.97-1.69) ng/mL TSH 3rd Generation < 0.02 L (0.46-4.68) mIU/mL Laboratory Results - last 24 hr 12/30/18 12/30/18 12/30/18 16:01 19:28 19:28 WBC RBC Hgb Hct MCV MCH MCHC RDW Plt Count MPV Sodium Potassium Chloride Carbon Dioxide Anion Gap BUN Creatinine Est GFR ( Amer) Est GFR (Non-Af Amer) Random Glucose Calcium Phosphorus 2.7 Magnesium Total Bilirubin AST ALT Alkaline Phosphatase Troponin I 0.03 D Total Protein Albumin Globulin Albumin/Globulin Ratio Free T4 Thyroxine (T4) Free T3 pg/mL Total T3 TSH 3rd Generation < 0.02 L 12/30/18 12/31/18 12/31/18 23:45 06:45 06:45 WBC 6.2 RBC 5.00 Hgb 12.5 Hct 42.3 MCV 84.6 MCH 25.0 MCHC 29.6 L RDW 14.4 Plt Count 355 MPV 11.1 H Sodium 143 Potassium 4.2 Chloride 111 H Carbon Dioxide 28 Anion Gap 8 L BUN 16 Creatinine 0.7 Est GFR ( Amer) > 60 Est GFR (Non-Af Amer) > 60 Random Glucose 112 H Calcium 9.1 Phosphorus Magnesium Total Bilirubin 0.6 AST 31 ALT 16 Alkaline Phosphatase 96 Troponin I 0.03 Total Protein 6.8 Albumin 3.6 Globulin 3.2 Albumin/Globulin Ratio 1.1 Free T4 Thyroxine (T4) Free T3 pg/mL Total T3 TSH 3rd Generation 12/31/18 12/31/18 12/31/18 06:45 06:45 10:15 WBC RBC Hgb Hct MCV MCH MCHC RDW Plt Count MPV Sodium Potassium Chloride Carbon Dioxide Anion Gap BUN Creatinine Est GFR ( Amer) Est GFR (Non-Af Amer) Random Glucose Calcium Phosphorus 3.1 Magnesium 2.2 Total Bilirubin AST ALT Alkaline Phosphatase Troponin I Total Protein Albumin Globulin Albumin/Globulin Ratio Free T4 1.25 Thyroxine (T4) 9.8 Free T3 pg/mL 5.58 H Total T3 1.59 TSH 3rd Generation EKG/Cardiology Studies: Cardiology / EKG Studies 12/30/18 18:30 EKG [ELECTROCARDIOGRAM] Stat Comment: Reason For Exam: CHEST PAIN 12/30/18 18:58 EKG [ELECTROCARDIOGRAM] Stat Comment: Reason For Exam: CHEST PAIN Critical Care Progress Note - Nutrition Nutrition: Nutrition Category Date Time Status Heart Healthy Diet [DIET] Diets 12/30/18 Breakfast Active Attending/Attestation - Attestation I have personally seen and examined this patient.: Yes I have fully participated in the care of the patient.: Yes I have reviewed all pertinent clinical information: Yes Notes (Text): 12/31/18 14:[address] Peraza note
[2018-12-31] MEDS: Metoprolol Succinate 50 mg XL Tab PO SCH (08:12)
--- NOTE | 2018-12-31 09:45 | CON ---
DATE: 12/31/2018 HISTORY OF PRESENT ILLNESS: This is a 78-year-old lady with past medical history of atrial fibrillation, dilated cardiomyopathy, hypertension, hysterectomy, and CVA, who presented to the emergency department this time complaining of some unexplained shock of her implanted defibrillator. She initially felt two sudden shocks, which were very painful and made her to stumble back to her bed. She does take Eliquis for stroke prevention in the setting of paroxysmal atrial fibrillation and sometimes do experience swelling of the legs and ankles bilaterally. The patient also reported episodes of tremulousness and unexplained nervousness. No fever, no chills, no sweats, no nausea, no vomiting, no diarrhea, and no constipation. Upon further investigation in emergency room, she was found to have AFib with RVR. She was started on Cardizem drip and beta-blockers were added to her regimen by Cardiology Service. She was continued on Eliquis. PAST MEDICAL HISTORY: Hypertension, CVA, atrial fibrillation. FAMILY HISTORY: Noncontributory. SOCIAL HISTORY: No alcohol or illicit drug abuse. No tobacco smoking. ALLERGIES: NKDA. MEDICATION AT HOME: Metoprolol, dofetilide, Lipitor, Eliquis?, Enalapril?, vitamin D. CURRENT MEDICATIONS: Eliquis, Lipitor, Pepcid, metoprolol, Cardizem drip. REVIEW OF SYSTEM: Review of 12-organ system other than mentioned in history of present illness is negative. PHYSICAL EXAMINATION: VITAL SIGNS: Blood pressure 120/60; heart rate irregular, varies between 100 and 130, respiratory rate 16; oxygen saturation 100% on room air. HEENT: Head and neck atraumatic. Thyroid gland was very carefully examined. No thyromegaly. LUNGS: Clear to auscultation bilaterally. HEART: Regular rate. S1 and S2 normal. ABDOMEN: Soft, nontender, nondistended. MUSCULOSKELETAL: No C/C/E. NEURO: The patient moves all extremities spontaneously. SKIN: Moist. PSYCH: The patient is alert, awake and oriented x3. LABORATORY DATA: WBC of 6.2, hemoglobin 12.5, platelet count 355. Sodium 143, potassium 4.2, chloride 111, carbon dioxide 28, BUN 16, creatinine 0.7, glucose 112, calcium 9.1, TSH less than 0.02. Troponin 0.03 x2. AST 31, ALT 16, total bilirubin 0.6. PTT of 39.3. ASSESSMENT AND PLAN: This is a 78-year-old who lady, who presented with defibrillator malfunction in the setting of atrial fibrillation with RVR and hyperthyroidism. There are no signs of life-threatening complication of the hyperthyroidism, and thus, my suspicion for thyroid storm is extremely low. We will continue with Cardizem drip and beta-blockers for rate control, IV fluid, Endocrinology consult. Thyroglobulin antibodies, PTO, free T4 and T3 were ordered. We will continue to target euvolemia, euglycemia, normothermia, and oxygen saturation more than 90%. Please note that blood pressure is stable. Dr. Min for endocrine consult. The patient is able to protect airways, very comfortable, maintaining thoughtful conversation. No gross neurological deficit. Mental status is clear. ccm time 40 min Wolfgang Peraza MD MTDLeora
[2018-12-31] MEDS ORDERED: Metoprolol Succinate 25 mg XL Tab PO SCH (10:00)
[2018-12-31] MEDS: DOFETILIDE 125 MCG PO SCH ×2 (10:31→18:30)
--- NOTE | 2018-12-31 11:05 | CARD ---
APPROVED REPORT Date of service: 12/30/2018 EKG Measurement Heart [id number] <Conclusion> Atrial fibrillation with rapid ventricular response with premature ventricular or aberrantly conducted complexes Left axis deviation Anterolateral infarct, age undetermined Abnormal ECG
--- NOTE | 2018-12-31 11:07 | CARD ---
APPROVED REPORT Date of service: 12/30/2018 EKG Measurement Heart [id number] <Conclusion> Atrial fibrillation with rapid ventricular response with premature ventricular or aberrantly conducted complexes Left axis deviation Inferior-posterior infarct, Age? Ols? Anterolateral infarct, age? Old? ST-T Changes-Correlate Clinically.
[2018-12-31 11:19] LABS: FREE T4 1.25 ng/dL (0.78-2.19); T4 9.8 ug/dL (5.5-11.0)
[2018-12-31 11:33] LABS: T3 1.59 ng/mL (0.97-1.69)
--- NOTE | 2018-12-31 12:51 | PN ---
DATE: 12/31/2018 SUBJECTIVE: I admitted her yesterday with a firing of her defibrillator, then she went to the emergency room and showed normal sinus rhythm and then over the night her rhythm changed to a very fast rhythm, it went to size 143 I could tell. She is now in the intensive care unit, on Cardizem drip. Also, she has some issues with her labs. LABORATORY DATA: She has 6.2 white count, 12.5 hemoglobin, 42.3 hematocrit with 355 platelets. PTT is 39.3. She has sodium 143, potassium 4.2, BUN 16, creatinine 0.7, GFR is greater than 60, sugar is 112, phosphorus 2.7, total bili is 0.6. AST is 31, ALT is 16, alk phos is 96. Her TSH is extremely well, less than 0.02, troponin is 0.03, total protein is 6.8. ASSESSMENT AND PLAN: She will have a consult with Endocrinology. Hopefully with Endocrinology in, I think it is hyperthyroid related that needs to be fixed. Also in a Cardizem drip. We will see what Cardiology has to say this morning and Endocrinology. I will check her labs tomorrow. I changed her to an inpatient. I think this will take more than two overnights before she can be discharged. Rick Gottlieb DO
--- NOTE | 2018-12-31 15:53 | CP.PCM.APN ---
Subjective - Date & Time of Evaluation Date of Evaluation: 12/31/18 Time of Evaluation: 13:00 - Subjective Subjective: Pt. seen and examined sitting up in bed, denied any chest pain, denied palpitations, shortness of breath, dizziness or weakness. Review of Systems - Constitutional Constitutional: As Per HPI - EENT Eyes: absent: As Per HPI, Blind Spots, Blurred Vision, Change in Vision, Decreased Night Vision, Diplopia, Discharge, Dry Eye, Exophthalmos, Floaters, Irritation, Itchy Eyes, Loss of Peripheral Vision, Pain, Photophobia, Requires Corrective Lenses, Sees Flashes, Spots in Vision, Tunnel Vision, Other Visual Disturbances, Loss of Vision, Other Ears: absent: As Per HPI, Decreased Hearing, Ear Discharge, Ear Pain, Tinnitus, Abnormal Hearing, Disequilibrium, Dizziness, Other Nose/Mouth/Throat: absent: As Per HPI, Epistaxis, Nasal Congestion, Nasal Discharge, Nasal Obstruction, Nasal Trauma, Nose Pain, Post Nasal Drip, Sinus Pain, Sinus Pressure, Bleeding Gums, Change in Voice, Dental Pain, Dry Mouth, Dysphagia, Halitosis, Hoarsness, Lip Swelling, Mouth Lesions, Mouth Pain, Odyn ophagia, Sore Throat, Throat Swelling, Tongue Swelling, Facial Pain, Neck Pain, Neck Mass, Other - Breasts Breasts: absent: As Per HPI, Change in Shape, Mass, Pain, Nipple Discharge, Nipple Inversion, Skin Changes, Swelling, Other - Cardiovascular Cardiovascular: Irregular Heart Rhythm, Rapid Heart Rate - Respiratory Respiratory: absent: As Per HPI, Cough, Dyspnea, Hemoptysis, Dyspnea on Exertion, Wheezing, Snoring, Stridor, Pain on Inspiration, Chest Congestion, Excessive Mucous Production, Change in Mucous Color, Pain with Coughing, Other - Gastrointestinal Gastrointestinal: absent: As Per HPI, Abdominal Pain, Belching, Bloating, Change in Bowel Habits, Change in Stool Character, Coffee Ground Emesis, Constipation, Cramping, Diarrhea, Dyspepsia, Dysphagia, Early Satiety, Excessive Flatus, Fecal Incontinence, Heartburn, Hematemesis, Hematochezia, Loose Stools, Melena, Nausea, Odynophagia, Temesmus, Vomiting, Other - Genitourinary Genitourinary: absent: As Per HPI, Change in Urinary Stream, Difficulty Urinating, Dysuria, Flank Pain, Hematuria, Pyuria, Nocturia, Urinary Incontinence, Urinary Frequency, Urinary Hesitance, Urinary Urgency, Voiding Freq/Small Amts, Freq UTI, Hx Renal/Bladder Calculi, Hx /Renal Surgery, Bladder Distension, Other - Reproductive: Female Reproductive:Female: absent: As Per HPI, Amenorrhea, Amenorrhea/ Control, C urrently Menstual, Cycle <21 Days, Cycle >35 Days, Cycle Variable, Menses 1-7 Days, Menses >/= 8 Days, Menses Variable, Cycle > 4 Weeks Between, No Menses for 6 Months, Heavy Menses, Light Menses, Normal Menses, Spotting Between Cycles, S/P Hysterectomy, Menopausal, Post Menopausal, Premenarche, Abnormal Vaginal Bleeding, Dysmenorrhea, Dyspareunia, Genital Lesions, Genital Pruritis, Pelvic Pain, Prolapse Symptoms, Sexual Dysfunction, Vaginal Discharge, Vaginal Dryness, Vaginal Odor, Vaginal Pruritis, Other - Menstruation Menstruation: absent: As Per HPI, Amenorrhea, Amenorrhea/ Control, Currently Menstual, Cycle <21 Days, Cycle >35 Days, Cycle Variable, Menses 1-7 Days, Menses >/= 8 Days, Menses Variable, Cycle > 4 Weeks Between, No Menses for 6 Months, Heavy Menses, Light Menses, Normal Menses, Spotting Between Cycles, S/P Hysterectomy, Menopausal, Post Menopausal, Premenarche, Abnormal Vaginal Bleeding, Dysmenorrhea, Other - Musculoskeletal Musculoskeletal: absent: As Per HPI, Abnormal Gait, Arthralgias, Atrophy, Back Pain, Deformity, Joint Swelling, Limited Range of Motion, Loss of Height, Muscle Cramps, Muscle Weakness, Myalgias, Neck Pain, Numbness, Radiating Pain into Limb, Stiffness, Tingling, Other - Integumentary Integumentary: absent: As Per HPI, Acne, Alopecia, Bleeding Lesions, Change in Hair, Change in Nails, Change in Pigmentation, Changing Lesions, Dry Skin, Erythema, Furuncle, Hirsutism, Lesions, New Lesions, Non-Healing Lesions, Photosensitivity, Pruritus, Rash, Skin Pain, Skin Ulcer, Sores, Striae, Swelling, Unusual Bruising, Wounds, Jaundice, Other - Neurological Neurological: absent: As Per HPI, Abnormal Gait, Abnormal Hearing, Abnormal Movements, Abnormal Speech, Behavioral Changes, Burning Sensations, Confusion, Convulsions, Disequilibrium, Dizziness, Numbness, Focal Weakness, Frequent Falls, Headaches, Lack of Coordination, Loss of Vision, Memory Loss, Paresthesias, Radicular Pain, Restless Legs, Sensory Deficit, Syncope, Tingling, Tremor, Vertigo, Weakness, Other Visual Disturbances, Other - Psychiatric Psychiatric: absent: As Per HPI, Abnormal Sleep Pattern, Anhedonia, Anxiety, Auditory Hallucinations, Behavioral Changes, Change in Appetite, Change in Libido, Confusion, Depression, Difficulty Concentrating, Hallucinations, Homicidal Ideation, Hopelessness, Irritability, Memory Loss, Mood Swings, Panic Attacks, Paranoia, Suicidal Ideation, Visual Hallucinations, Tactile Hallucinations, Other - Endocrine Endocrine: absent: As Per HPI, Change in Body Appearance, Change in Libido, Cold Intolorance, Deepening of Voice, Excessive Sweating, Fatigue, Flushing, Heat Intolorance, Increase in Ring/Shoe/Hat Size, Palpitations, Polydipsia, Polyphagia, Polyuria, Other - Hematologic/Lymphatic Hematologic: absent: As Per HPI, Easy Bleeding, Easy Bruising, Lymphadenopathy, Other Objective - Vital Signs/Intake and Output Vital Signs (last 24 hours): Temp Pulse Resp BP Pulse Ox 97.9 F 98 H 17 123/84 100 12/31/18 04:00 12/31/18 10:10 12/31/18 10:10 12/31/18 09:33 12/31/18 10:10 Intake and Output: 12/31/18 12/31/18 06:59 18:59 Intake Total 222.5 Output Total 300 Balance -77.5 - Medications Medications: Current Medications Apixaban (Eliquis) 5 mg PO Q12 DEBORAH; Protocol Atorvastatin Calcium (Lipitor) 40 mg PO DAILY [facility] Last Admin: 12/31/18 10:17 Dose: 40 mg Diltiazem HCl (Cardizem) 60 mg PO TID [facility] Last Admin: 12/31/18 13:26 Dose: 60 mg Famotidine (Pepcid) 40 mg PO HS [facility] Last Admin: 12/30/18 22:27 Dose: 40 mg diltiaZEM IVPB 100mg in NS (Cardizem 100mg In Ns) 100 mls @ 5 mls/hr IV .Q20H PRN; Protocol PRN Reason: TITRATE PER MD ORDER Last Titration: 12/31/18 05:10 Dose: 15 mg/hr, 15 mls/hr Metoprolol Succinate (Toprol Xl) 50 mg PO DAILY [facility] Last Admin: 12/31/18 08:12 Dose: 50 mg Non-Formulary Medication (Dofetilide [Dofetilide]) 125 mcg PO BID [facility] Last Admin: 12/31/18 10:31 Dose: Not Given - Labs Labs: 12/31/18 06:45 12/31/18 06:45 APTT 39.3 Seconds (26.9-38.3) H 12/30/18 09:06 - Constitutional Appears: Well, Non-toxic - Head Exam Head Exam: NORMOCEPHALIC - Eye Exam Eye Exam: absent: Conjunctival injection, EOMI, Normal appearance, Nystagmus, Periorbital swelling, Periorbital tenderness, PERRL, Scleral icterus - ENT Exam ENT Exam: absent: Mucous Membranes Dry, Mucous Membranes Moist, Normal Exam, Normal External Ear Exam, Normal Oropharynx, TM's Normal Bilaterally - Neck Exam Neck Exam: absent: Full ROM, Lymphadenopathy, Meningismus, Normal Inspection, Tenderness, Thyromegaly - Respiratory Exam Respiratory Exam: Clear to Ausculation Bilateral - Cardiovascular Exam Cardiovascular Exam: Irregular Rhythm, +S1, +S2 - GI/Abdominal Exam GI & Abdominal Exam: Soft, Normal Bowel Sounds - Rectal Exam Rectal Exam: Deferred - Exam Exam: NORMAL INSPECTION External exam: absent: Ecchymosis, Erythema, Lacerations, Lesions, NORMAL EXTERNAL EXAM, Swelling Speculum exam: absent: Cervical Discharge, Erythema, Foreign Body, Laceration, NORMAL SPECULUM EXAM, Tissue, Vaginal Bleeding, Vaginal Discharge Bimanual exam: absent: Adenexal Mass, Adnexal, Cervical Motion Tendernes, NORMAL BIMANUAL EXAM, Uterine Enlargement, Uterine Tenderness - Extremities Exam Extremities Exam: Full ROM, Normal Inspection - Back Exam Back Exam: Full ROM - Neurological Exam Neurological Exam: Alert, Awake, Oriented x3 - Psychiatric Exam Psychiatric exam: Normal Affect, Normal Mood - Skin Skin Exam: Dry, Intact, Normal Color, Warm Assessment and Plan - Assessment and Plan (Free Text) Assessment: ITS Impressions Chest X-Ray 12/30/18 09:43 IMPRESSION: No active disease. Assessment: 78 year old female with past medical history of a fib s/p ablation rate control with toprol xl and anticoagulated with eliquis, ventricular fibrillation s/p defibrillator, 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 In ED patient found to have ventricular rate of 100-130, was started on Cardizem drip and admitted to CCU for further monitoring. Plan: 1. Atrial Fibrillation with Rapid vent. rate -RAte now improved on Cardizem drip, continue as per Cardio. -Continue Beta Blockers, AC as per Cardio. On Eliquis. 2. 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 3. Hyperthyroidism- Free T4 elevated -Endocrinology consult pending. PT eval pending. Will continue to monitor clinical status and follow closely.
--- NOTE | 2018-12-31 18:04 | PN ---
DATE: 12/31/2018 SUBJECTIVE: The patient is awake, alert. PHYSICAL EXAMINATION: VITAL SIGNS: Blood pressure is 123/84, heart rate is now controlled with atrial fibrillation in the 80s. NECK: Negative JVD. LUNGS: Without rales. HEART: S1 and S2. EXTREMITIES: Without edema. LABORATORY Hemoglobin is 12.5. Chemistries, BUN and creatinine unchanged. Troponin is negative. IMPRESSION: 1. Dilated cardiomyopathy. 2. Defibrillator firing due to rapid atrial fibrillation. 3. Baseline atrial fibrillation. 4. Diabetes mellitus. Given these findings, the patient is doing well. We will add p.o. Cardizem and stop her IV Cardizem once her heart rate is under control. Ruben Bailey MD
--- NOTE | 2018-12-31 21:33 | CARD ---
APPROVED REPORT Date of service: 12/31/2018 EXAM: Two-dimensional and M-mode echocardiogram with Doppler and color Doppler. INDICATION A-FIB 2D DIMENSIONS Left Atrium (2D)5.0 (1.6-4.0cm)IVSd0.9 (0.7-1.1cm) LVDd4.5 (3.9-5.9cm)PWd1.0 (0.7-1.1cm) LVDs3.4 (2.5-4.0cm)FS (%) 23.0 % LVEF (%)46.4 (>50%) M-Mode DIMENSIONS Aortic Root3.00 (2.2-3.7cm)Aortic Cusp Exc.1.40 (1.5-2.0cm) Aortic Valve AoV Peak [id number]/Kimberly Peak GR.11mmHg Mitral Valve E/A ratio0.0 TDI E/Lateral E'0.0E/Medial E'0.0 Pulmonary Valve PV Peak Etcbsomx01.6cm/sPV Peak Grad.2mmHg Tricuspid Valve TR Peak [id number] [id number] Peak Gr.33mmHg [id number] LEFT VENTRICLE The left ventricle is normal size. There is normal left ventricular wall thickness. The systolic function is mildly impaired. There is global hypokinesis of the left ventricle. No left ventricle thrombus noted on this study. RIGHT VENTRICLE The right ventricle is normal size. There is normal right ventricular wall thickness. The right ventricular systolic function is normal. There is a pacemaker lead in the right ventricle. ATRIA The left atrium is severely dilated. The right atrium is mildly dilated. AORTIC VALVE The aortic valve is normal in structure. No aortic regurgitation is present. There is no aortic valvular stenosis. MITRAL VALVE The mitral valve is mildly thickened. Mitral regurgitation is severe. A borderline mitral valve prolapse is present. TRICUSPID VALVE The tricuspid valve is normal in structure. There is moderate tricuspid regurgitation. There is mild to moderate pulmonary hypertension. PULMONIC VALVE The pulmonary valve is normal in structure. There is mild pulmonic valvular regurgitation. GREAT VESSELS The aortic root is normal in size. <Conclusion> The left ventricle is normal size. There is normal left ventricular wall thickness. The systolic function is mildly impaired. There is global hypokinesis of the left ventricle. The left atrium is severely dilated. Mitral regurgitation is severe. There is moderate tricuspid regurgitation. There is mild to moderate pulmonary hypertension.
--- NOTE | 2018-12-31 21:50 | CON ---
DATE OF CONSULTATION: 12/31/2018 LOCATION: ICU, Room 129, Bed 5. HISTORY OF PRESENT ILLNESS: This is a 78-year-old female with known history of cardiac tachyarrhythmias, presenting here with sudden onset of irregular and rapid firing of ICD device today as noted and was seen in our emergency room with supervening development of rapid atrial fibrillation and rapid ventricular response prompting the initiation of a Cardizem drip infusion and is now being admitted to ICU for closer hemodynamic monitoring and referred now for endocrine evaluation of abnormal thyroid function studies. PAST MEDICAL HISTORY: History of atrial fibrillation with subsequent ablation, currently on oral anticoagulation therapy, using Eliquis at 5 mg b.i.d. She also has significant history of ventricular fibrillation and received a defibrillator insertion and currently on dofetilide medications at a dose of 125 mcg b.i.d., history of hypertension and dyslipidemia. She denies any prior history of hyperthyroidism or any intake of medications for the same. FAMILY HISTORY: Positive for hypertension and heart disease. SOCIAL HISTORY: The patient is a former smoker with a [id number] smoking history. Has a supportive family. Currently lives with her sister at home. REVIEW OF SYSTEMS: Admits to generalized body weakness with sudden onset of dizziness and lightheadedness on the day of admission. Also admits to episodic bifrontal headaches with easy fatigability and tiredness. No chest pains, but admits to sudden onset of palpitations and shortness of breath as noted this morning. Her oral intake has been variable with nausea and dyspepsia and vague upper abdominal pains. No recent alterations of bowel and urinary patterns. PHYSICAL EXAMINATION: GENERAL: This is an average built female in no apparent distress. VITAL SIGNS: Blood pressure of 140/80, pulse of 120 beats per minute and irregular, temperature 98, respirations 20, height is 5 feet 1 inch, weight is 122 pounds. HEENT: Head normocephalic. Eyes anicteric with pink conjunctivae. Funduscopy not possible at this time. Ears, nose and throat otherwise normal. NECK: Supple. Thyroid gland is normal in size. No carotid bruits or any cervical adenopathy. CARDIOPULMONARY: Some adynamic precordium. S1, S2 is rapid and regular. LUNGS: Clear to auscultation. ABDOMEN: Flat and soft with positive bowel sounds. EXTREMITIES: No peripheral edema. Pulses are +2 bilaterally. LABORATORY DATA: Her chemistries showed a BUN of 16, sodium 143, potassium 4.2, chloride 111, CO2 of 28, glucose 112 and creatinine 0.7. Her TSH is less than 0.02 with a total T4 or thyroxine of 9.8 mcg, a free T4 of 1.25, a free T3 of 5.58, and a total T3 of 1.59. ASSESSMENT: This is a 78-year-old female with history of cardiac tachyarrhythmias significant for both atrial and ventricular fibrillation and today presenting here with sudden onset of ICD firing episodes with supervening development in the emergency room of atrial fibrillation with rapid ventricular response. 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 PLAN OF MANAGEMENT: We will initiate medical therapy for hyperthyroidism tonight and start her on Tapazole at 20 mg b.i.d. to start today. We will obtain a repeat total and free T4 and TSH tomorrow as ordered. We will include a thyroid stimulating immunoglobulin, which will confirm and/or indicate the presence of thyroid autoimmunity. Thyroid antibodies have already been ordered otherwise. We will obtain serial chemistries and supplement accordingly as needed. We will follow. Vicki Min MD
[2019-01-01 07:35] LABS: HEMOGLOBIN 13.5 g/dL (12.0-16.0); MEAN CELL VOLUME 85.1 fl (80.0-105.0); MEAN CORPUSCULAR HEMOGLOBIN 25.5 pg (25.0-35.0); MEAN PLATELET VOLUME 10.9 fl (7.0-11.0); RBC 5.29 10^6/uL (3.5-6.1); RED CELL DISTRIBUTION WIDTH 14.3 % (11.5-14.5); WHITE BLOOD COUNT 6.6 10^3/uL (4.5-11.0)
[2019-01-01 08:04] LABS: FREE T4 1.39 ng/dL (0.78-2.19)
[2019-01-01 08:08] LABS: ALB/GLOB RATIO 1.3 (1.1-1.8); ALBUMIN 4.1 g/dL (3.0-4.8); ALT/SGPT 16 U/L (7-56); AST/SGOT 27 U/L (14-36); BLOOD UREA NITROGEN 16 mg/dL (7-21); CALCIUM 9.4 mg/dL (8.4-10.5); GFR NON-AFRICAN AMERICAN > 60
[2019-01-01] MEDS: Metoprolol Succinate 50 mg XL Tab PO SCH (08:29)
[2019-01-01] MEDS: DOFETILIDE 125 MCG PO SCH ×2 (09:10→18:33)
[2019-01-01 09:57] LABS: T4 11.6 ug/dL (5.5-11.0)
--- NOTE | 2019-01-01 12:12 | CARD ---
APPROVED REPORT Date of service: 01/01/2019 EKG Measurement Heart [id number] <Conclusion> Atrial fibrillation with rapid ventricular response Left axis deviation Right bundle branch block Inferior infarct, age undetermined Abnormal ECG
--- NOTE | 2019-01-01 13:10 | PN ---
DATE: 01/01/2019 SUBJECTIVE: The patient seen and examined at bedside. She is comfortable. She talks full sentences. She is not in respiratory or otherwise distress. She is having her breakfast. She maintains thoughtful conversation. PHYSICAL EXAMINATION VITAL SIGNS: Heart rate is 140, blood pressure 100/42, respiratory 13 and oxygen saturation 100% on room air. Patient temperature is 97.9. The patient was afebrile overnight. HEENT: Head and neck atraumatic. LUNGS: Clear to auscultation bilaterally. HEART: Regular rate and rhythm. S1 and S2 normal. ABDOMEN: Soft, nontender and nondistended. MUSCULOSKELETAL: No C/C/E. NEURO: The patient moves all extremities spontaneously. SKIN: Moist. PSYCH: The patient is alert, awake and oriented x3. LABORATORY DATA: Sodium 141, potassium 4.5, chloride 108, carbon dioxide 27, BUN 16, creatinine 0.7, glucose 111, calcium 9.4, AST 27, ALT 16, total bilirubin 0.7. Free T3 is 5.58 which is elevated. Free T4 is 1.25. MEDICATIONS: Eliquis 5 mg p.o. every 12 hours, Lipitor, Cardizem 60 mg p.o. t.i.d., dofetilide 125 mcg p.o. b.i.d., Pepcid, methimazole 20 mg p.o. b.i.d. and metoprolol 50 mg p.o. daily. ASSESSMENT AND PLAN: This is a 78-year-old lady with poorly controlled atrial fibrillation with rapid ventricular response due to hyperthyroidism (no signs of thyroid storm). At present time, we are going to give her, her morning p.o. medications which includes Cardizem p.o. and metoprolol p.o. We will have low threshold to reinitiate Cardizem drip if need be. Cardiology service is following the patient as well. Echocardiogram was done yesterday which showed mild left ventricular systolic dysfunction with significant dilatation of the left atrium. The right ventricle however, has normal systolic function and normal size. Right atrium is mildly dilated. We will continue to target euvolemia, euglycemia, normothermia and oxygen saturation more than 90%. If the patient's heart rate better controlled, the patient may be going to telemetry. Addendum: HR 110-115 ccm time 40 min Wolfgang Peraza MD MTDD
--- NOTE | 2019-01-01 13:16 | CP.CCUPN ---
CCU Subjective - Physician Review Subjective (Free Text): 01/01/19 08:15 Patient seen and examined this AM. No acute events reported overnight. Patient cardizem gtt was titrated off. Patient indicates she is without complaints of chest pain, shortness of breath, palpitations, fatigue, fever, chills, nausea, vomiting. CCU Objective - Vital Signs / Intake & Output Vital Signs (Last 4 hours): Vital Signs Temp Pulse Resp BP Pulse Ox 01/01/19 12:00 98.5 F 84 21 102/53 L 100 01/01/19 10:00 131 H Intake and Output (Last 8hrs): Intake & Output 12/31/18 01/01/19 01/01/19 22:59 06:59 14:59 Intake Total 900 Output Total 750 Balance 150 Intake: IV 100 Right Hand 100 Oral 800 Output: Urine 750 Urine, Voided 750 Other: # Bowel Movements 0 - Physical Exam Head: Positive for: Atraumatic, Normocephalic Pupils: Positive for: PERRL Extroacular Muscles: Positive for: EOMI Conjunctiva: Positive for: Normal Mouth: Positive for: Moist Mucous Membranes Neck: Positive for: Normal Range of Motion Respiratory/Chest: Positive for: Clear to Auscultation. Negative for: Rales, Rhonchi Cardiovascular: Positive for: Irregular Rhythm, Tachycardic. Negative for: Rub Abdomen: Positive for: Normal Bowel Sounds. Negative for: Tenderness, Distention Upper Extremity: Positive for: Normal Inspection. Negative for: Cyanosis, Edema Lower Extremity: Positive for: Normal Inspection. Negative for: Edema Neurological: Positive for: GCS=15, CN II-XII Intact, Speech Normal, Motor Func Grossly Intact, Normal Sensory Function Skin: Positive for: Warm, Dry Psychiatric: Positive for: Alert, Oriented x 3, Normal Insight - Medications Active Medications: Active Medications Generic Name Dose Route Start Last Admin Trade Name Freq PRN Reason Stop Dose Admin Apixaban 5 mg 12/31/18 11:39 01/01/19 09:13 Eliquis PO 5 mg Q12 DEBORAH Administration Protocol Atorvastatin Calcium 40 mg 12/31/18 10:00 01/01/19 09:13 Lipitor PO 40 mg DAILY DEBORAH Administration Diltiazem HCl 60 mg 12/31/18 14:00 01/01/19 08:29 Cardizem PO 60 mg TID DEBORAH Administration Famotidine 40 mg 12/30/18 22:00 12/31/18 21:24 Pepcid PO 40 mg HS DEBORAH Administration diltiaZEM IVPB 100mg in NS 100 mls @ 5 mls/hr 12/30/18 19:30 12/31/18 05:10 Cardizem 100mg In Ns IV 15 mg/hr .Q20H PRN 15 mls/hr TITRATE PER MD ORDER Titration Protocol 5 MG/HR Methimazole 20 mg 12/31/18 18:00 01/01/19 08:29 Tapazole PO 20 mg BID DEBORAH Administration Metoprolol Succinate 50 mg 12/31/18 10:00 01/01/19 08:29 Toprol Xl PO 50 mg DAILY DEBORAH Administration Non-Formulary Medication 125 mcg 12/30/18 18:00 01/01/19 09:10 Dofetilide [Dofetilide] PO Not Given BID DEBORAH - Patient Studies Lab Studies: Microbiology Studies 12/30/18 22:24 MRSA Culture (Admit) - Final Nose MRSA NOT DETECTED Lab Studies 01/01/19 01/01/19 01/01/19 Range/Units 07:15 07:15 07:15 WBC 6.6 (4.5-11.0) 10^3/uL RBC 5.29 (3.5-6.1) 10^6/uL Hgb 13.5 (12.0-16.0) g/dL Hct 45.0 (36.0-48.0) % MCV 85.1 (80.0-105.0) fl MCH 25.5 (25.0-35.0) pg MCHC 30.0 L (31.0-37.0) g/dl RDW 14.3 (11.5-14.5) % Plt Count 394 (120.0-450.0) 10^3/uL MPV 10.9 (7.0-11.0) fl Sodium 141 (132-148) mmol/L Potassium 4.5 (3.6-5.0) mmol/L Chloride 108 H (98-107) mmol/L Carbon Dioxide 27 (21-33) mmol/L Anion Gap 10 (10-20) BUN 16 (7-21) mg/dL Creatinine 0.7 (0.7-1.2) mg/dl Est GFR ( Amer) > 60 Est GFR (Non-Af Amer) > 60 Random Glucose 111 H (70-110) mg/dL Calcium 9.4 (8.4-10.5) mg/dL Total Bilirubin 0.7 (0.2-1.3) mg/dL AST 27 (14-36) U/L ALT 16 (7-56) U/L Alkaline Phosphatase 106 (38-126) U/L Total Protein 7.3 (5.8-8.3) g/dL Albumin 4.1 (3.0-4.8) g/dL Globulin 3.2 gm/dL Albumin/Globulin Ratio 1.3 (1.1-1.8) Free T4 1.39 (0.78-2.19) ng/dL Thyroxine (T4) 11.6 H (5.5-11.0) ug/dL TSH 3rd Generation < 0.02 L (0.46-4.68) mIU/mL Laboratory Results - last 24 hr 01/01/19 01/01/19 01/01/19 07:15 07:15 07:15 WBC 6.6 RBC 5.29 Hgb 13.5 Hct 45.0 MCV 85.1 MCH 25.5 MCHC 30.0 L RDW 14.3 Plt Count 394 MPV 10.9 Sodium 141 Potassium 4.5 Chloride 108 H Carbon Dioxide 27 Anion Gap 10 BUN 16 Creatinine 0.7 Est GFR ( Amer) > 60 Est GFR (Non-Af Amer) > 60 Random Glucose 111 H Calcium 9.4 Total Bilirubin 0.7 AST 27 ALT 16 Alkaline Phosphatase 106 Total Protein 7.3 Albumin 4.1 Globulin 3.2 Albumin/Globulin Ratio 1.3 Free T4 1.39 Thyroxine (T4) 11.6 H TSH 3rd Generation < 0.02 L EKG/Cardiology Studies: Cardiology / EKG Studies 01/01/19 EKG [ELECTROCARDIOGRAM] Urgent Comment: Reason For Exam: afib? 01/01/19 00:00 EKG [ELECTROCARDIOGRAM] Routine Comment: Reason For Exam: afib Critical Care Progress Note - Nutrition Nutrition: Nutrition Category Date Time Status Heart Healthy Diet [DIET] Diets 12/30/18 Breakfast Active
--- NOTE | 2019-01-01 15:36 | PN ---
DATE: 01/01/2019 SUBJECTIVE: I saw her in the Intensive Care Unit. I walked in to see her. She was on a monitor of 140 beats a minute. She was off the IV Cardizem. I discussed this with the outreach consultant to put her on some Tapazole and to start her back on IV Cardizem until the lpn cma could come. I think she needs the IV Cardizem until the Tapazole is in place. She is comfortable in bed. She is eating. PHYSICAL EXAMINATION: VITAL SIGNS: She has a 97.9 temperature, 147 pulse, 117/64 blood pressure, 18 respiratory rate, 100% O2 sat on nasal cannula. GENERAL: She is alert. She is talking with me. Head: Atraumatic, normocephalic. HEART: She has palpitations and chest pain. LUNGS: No shortness of breath. ABDOMEN: No abdominal pain. EXTREMITIES: No extremity pains. No edema of the legs. MEDICATIONS: She is on Cardizem and Cardizem IV and Eliquis, Lipitor, Pepcid, Tapazole and Toprol. LABORATORY DATA: She has 6.6 white count, 13.5 hemoglobin, 45 hematocrit with 394 platelets. 141 sodium, potassium 4.5, BUN is 16, creatinine 0.7, GFR is greater than 60, sugar is 111, calcium 9.4, total bili is 0.7, AST is 27, ALT is 16, alk phos 106, total protein 7.3. TSH was less than 0.02. ASSESSMENT AND PLAN: Dr. Min came in and saw the patient which is great. She is being seen by Cardiology. She is back on the IV Cardizem, on Tapazole, hopefully we can get her heart rate under 100 soon. Will continue ICU as per Cardiology and outreach consultant, and Endocrinology. Check her labs tomorrow. Rick Gottlieb DO
--- NOTE | 2019-01-01 16:03 | CP.PCM.APN ---
Subjective - Date & Time of Evaluation Date of Evaluation: 01/01/19 Time of Evaluation: 12:35 - Subjective Subjective: Pt. seen and examined , sitting up in bed. Cardizem drip noted to be off, patient denied chest pain, palpitations, dyspnea, dizziness. States feels much better. Objective - Vital Signs/Intake and Output Vital Signs (last 24 hours): Temp Pulse Resp BP Pulse Ox 98.5 F 114 H 21 102/53 L 100 01/01/19 12:00 01/01/19 14:00 01/01/19 12:00 01/01/19 12:00 01/01/19 12:00 - Medications Medications: Current Medications Apixaban (Eliquis) 5 mg PO Q12 [facility]; Protocol Last Admin: 01/01/19 09:13 Dose: 5 mg Atorvastatin Calcium (Lipitor) 40 mg PO DAILY [facility] Last Admin: 01/01/19 09:13 Dose: 40 mg Diltiazem HCl (Cardizem) 60 mg PO TID [facility] Last Admin: 01/01/19 08:29 Dose: 60 mg Famotidine (Pepcid) 40 mg PO HS [facility] Last Admin: 12/31/18 21:24 Dose: 40 mg diltiaZEM IVPB 100mg in NS (Cardizem 100mg In Ns) 100 mls @ 5 mls/hr IV .Q20H PRN; Protocol PRN Reason: TITRATE PER MD ORDER Last Titration: 12/31/18 05:10 Dose: 15 mg/hr, 15 mls/hr Methimazole (Tapazole) 20 mg PO BID [facility] Last Admin: 01/01/19 08:29 Dose: 20 mg Metoprolol Succinate (Toprol Xl) 50 mg PO DAILY [facility] Last Admin: 01/01/19 08:29 Dose: 50 mg Non-Formulary Medication (Dofetilide [Dofetilide]) 125 mcg PO BID [facility] Last Admin: 01/01/19 09:10 Dose: Not Given - Labs Labs: 01/01/19 07:15 01/01/19 07:15 APTT 39.3 Seconds (26.9-38.3) H 12/30/18 09:06 - Constitutional Appears: Well, Non-toxic - Head Exam Head Exam: NORMOCEPHALIC - Eye Exam Eye Exam: absent: Conjunctival injection, EOMI, Normal appearance, Nystagmus, Periorbital swelling, Periorbital tenderness, PERRL, Scleral icterus - ENT Exam ENT Exam: absent: Mucous Membranes Dry, Mucous Membranes Moist, Normal Exam, Normal External Ear Exam, Normal Oropharynx, TM's Normal Bilaterally - Neck Exam Neck Exam: Full ROM - Respiratory Exam Respiratory Exam: Clear to Ausculation Bilateral - Cardiovascular Exam Cardiovascular Exam: REGULAR RHYTHM, +S1, +S2 - GI/Abdominal Exam GI & Abdominal Exam: Soft, Normal Bowel Sounds - Rectal Exam Rectal Exam: Deferred - Exam Exam: absent: Circumcision, NORMAL INSPECTION, Scrotal Swelling, Testicular Tenderness, Uretheral Discharge, Testicular Vertical Lie, Bladder Distension External exam: absent: Ecchymosis, Erythema, Lacerations, Lesions, NORMAL EXTERNAL EXAM, Swelling Speculum exam: absent: Cervical Discharge, Erythema, Foreign Body, Laceration, NORMAL SPECULUM EXAM, Tissue, Vaginal Bleeding, Vaginal Discharge Bimanual exam: absent: Adenexal Mass, Adnexal, Cervical Motion Tendernes, NORMAL BIMANUAL EXAM, Uterine Enlargement, Uterine Tenderness - Extremities Exam Extremities Exam: Full ROM - Back Exam Back Exam: NORMAL INSPECTION - Neurological Exam Neurological Exam: Alert, Awake, Oriented x3 Assessment and Plan - Assessment and Plan (Free Text) Assessment: Assessment: 78 year old female with past medical history of a fib s/p ablation rate control with toprol xl and anticoagulated with eliquis, ventricular fibrillation s/p defibrillator, 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 In ED patient found to have ventricular rate of 100-130, was started on Cardizem drip and admitted to CCU for further monitoring. Plan: 1. Atrial Fibrillation with Rapid vent. rate -RAte now improved on Cardizem drip, discontinued as per Cardio. -Continue Beta Blockers, AC as per Cardio. On Eliquis. 2. s/p ICD Firing _ Device interrogation with normal results, continue to monitor rhythm on monitoring analyst, check serial EKGs. 3. Hyperthyroidism- Free T4 elevated -Endocrinology consulted. PT eval pending. Will continue to monitor clinical status and follow closely.
--- NOTE | 2019-01-02 00:32 | PN ---
DATE: 01/01/2019 ENDOCRINOLOGY FOLLOWUP NOTE LOCATION: CCU 129, Room 5. SUBJECTIVE: This is a 78-year-old female with recent admission for rapid atrial fibrillation on the background of significant cardiac tachyarrhythmias with a defibrillator in place and is now being followed closely for hemodynamic monitoring in the ICU and is also being followed closely for metabolic management. She also was diagnosis of overt hyperthyroidism as noted thereof. LABORATORY DATA: Latest chemistry showed a BUN of 16, sodium 141, potassium 4.5, chloride 108, CO2 of 27, glucose 111, and creatinine 0.7. The repeat thyroid study showed a T4 or thyroxine level of 11.6 with a free T4 of 1.39 and a TSH of less than 0.02 with a T3 of 1.59. ASSESSMENT: This is a 78-year-old female with overt hyperthyroidism noted both historically, clinically and biochemically and presenting here with rapid atrial fibrillation on the background of cardiac tachyarrhythmias with a defibrillator in place as noted. PLAN OF MANAGEMENT: We will modify her current medical therapy to a higher dosing of methimazole or Tapazole given as 20 mg b.i.d. after meals as given and ordered. We will obtain serial chemistries and supplement accordingly as needed. We will also obtain serial thyroid studies and adjust her Tapazole dosing accordingly. We will obtain serial chemistries and supplement accordingly as needed. We will follow. Vicki Min MD
[2019-01-02 07:09] LABS: HEMOGLOBIN 14.5 g/dL (12.0-16.0); MEAN CELL VOLUME 85.2 fl (80.0-105.0); MEAN CORPUSCULAR HEMOGLOBIN 25.5 pg (25.0-35.0); MEAN CORPUSCULAR HGB CONC 29.9 g/dl (31.0-37.0); MEAN PLATELET VOLUME 11.3 fl (7.0-11.0); RBC 5.69 10^6/uL (3.5-6.1); RED CELL DISTRIBUTION WIDTH 14.3 % (11.5-14.5); WHITE BLOOD COUNT 7.5 10^3/uL (4.5-11.0)
[2019-01-02 07:22] LABS: ALB/GLOB RATIO 1.2 (1.1-1.8); ALBUMIN 4.6 g/dL (3.0-4.8); ALT/SGPT 16 U/L (7-56); AST/SGOT 32 U/L (14-36); BLOOD UREA NITROGEN 17 mg/dL (7-21); CALCIUM 9.8 mg/dL (8.4-10.5); GFR NON-AFRICAN AMERICAN > 60
[2019-01-02] MEDS: Metoprolol Succinate 50 mg XL Tab PO SCH ×2 (08:25→09:01)
[2019-01-02] MEDS: DOFETILIDE 125 MCG PO SCH (09:01)
--- NOTE | 2019-01-02 13:25 | PN ---
DATE: 01/02/2019 SUBJECTIVE: I want to see this morning in Intensive Care Unit. She was off the IV Cardizem. Her heart rate was 170, 160, 174, I called the nursing. I asked them to give her an IV Cardizem and put her back on the Cardizem drip. She was only on p.o. Cardizem at this time; also dofetilide, Eliquis, ipratropium, Pepcid, Tapazole and Toprol. PHYSICAL EXAMINATION: VITAL SIGNS: She has 97 temp, 162 up to 174 when I was in the room pulse, 113/75 blood pressure, 20 respiratory rate, 97% O2 sat on room air. HEENT: Head is atraumatic and normocephalic. HEART: Regular rate, extremely tachy. LUNGS: Decreased breath sounds. ABDOMEN: Soft. EXTREMITIES: No edema. totally asymptomatic with a pulse of 174. LABORATORY DATA: White count 7.5, hemoglobin 14.5, hematocrit 48.5, platelets of 418. 140 sodium, potassium 4.3, BUN 17, creatinine 0.8, GFR greater than 60, sugar is 110, calcium 9.8, total bili is 0.8, AST is 32, ALT is 16, alk phos 117, total protein is 8.3, TSH was less than 0.02. 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 She has rapid atrial fibrillation plus hyperthyroid. She is on Tapazole heart rate under control, I will be more than happy to discharge her. The problem is I walked in to her and saw it 174 on p.o. Cardizem. She has dilated cardiomyopathy, defibrillator firing due to rapid atrial fibrillation based on atrial fibrillation, but she has had 174 beats a minute. She has hyperthyroidism. Rick Gottlieb DO MTDD
--- NOTE | 2019-01-02 16:54 | CP.PCM.APN ---
Subjective - Date & Time of Evaluation Date of Evaluation: 01/02/19 Time of Evaluation: 11:35 - Subjective Subjective: Pt. seen and examined at bedside. Seen sitting up, offers no complaints, denied palpitations, chest discomfort, dizziness or weakness. Objective - Vital Signs/Intake and Output Vital Signs (last 24 hours): Temp Pulse Resp BP Pulse Ox 98 F 130 H 22 126/64 97 01/02/19 16:00 01/02/19 16:27 01/02/19 16:27 01/02/19 15:41 01/02/19 12:00 Intake and Output: 01/02/19 01/02/19 06:59 18:59 Intake Total 860 Output Total 400 Balance 460 - Medications Medications: Current Medications Apixaban (Eliquis) 5 mg PO Q12 [facility]; Protocol Last Admin: 01/02/19 09:01 Dose: Not Given Atorvastatin Calcium (Lipitor) 40 mg PO DAILY [facility] Last Admin: 01/02/19 09:00 Dose: Not Given Diltiazem HCl (Cardizem) 60 mg PO QID [facility] Famotidine (Pepcid) 40 mg PO HS [facility] Last Admin: 01/01/19 21:32 Dose: 40 mg Methimazole (Tapazole) 20 mg PO BID [facility] Last Admin: 01/02/19 09:00 Dose: 20 mg Metoprolol Succinate (Toprol Xl) 100 mg PO DAILY [facility] Non-Formulary Medication (Dofetilide [Dofetilide]) 125 mcg PO BID [facility] Last Admin: 01/02/19 09:01 Dose: Not Given - Labs Labs: 01/02/19 06:30 01/02/19 06:30 APTT 39.3 Seconds (26.9-38.3) H 12/30/18 09:06 - Constitutional Appears: Well, Non-toxic - Head Exam Head Exam: NORMOCEPHALIC - Eye Exam Eye Exam: Normal appearance - Neck Exam Neck Exam: Full ROM - Respiratory Exam Respiratory Exam: Clear to Ausculation Bilateral, NORMAL BREATHING PATTERN - Cardiovascular Exam Cardiovascular Exam: Irregular Rhythm, +S1, +S2 - GI/Abdominal Exam GI & Abdominal Exam: Soft, Normal Bowel Sounds - Rectal Exam Rectal Exam: Deferred - Exam Exam: absent: Circumcision, NORMAL INSPECTION, Scrotal Swelling, Testicular Tenderness, Uretheral Discharge, Testicular Vertical Lie, Bladder Distension External exam: absent: Ecchymosis, Erythema, Lacerations, Lesions, NORMAL EXTERNAL EXAM, Swelling Speculum exam: absent: Cervical Discharge, Erythema, Foreign Body, Laceration, NORMAL SPECULUM EXAM, Tissue, Vaginal Bleeding, Vaginal Discharge - Extremities Exam Extremities Exam: Full ROM - Back Exam Back Exam: Full ROM - Neurological Exam Neurological Exam: Alert, Awake, Oriented x3 - Psychiatric Exam Psychiatric exam: Normal Affect, Normal Mood - Skin Skin Exam: Dry, Intact, Normal Color, Warm Assessment and Plan - Assessment and Plan (Free Text) Assessment: 78 year old female with past medical history of a fib s/p ablation rate control with toprol xl and anticoagulated with eliquis, ventricular fibrillation s/p defibrillator, 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 In ED patient found to have ventricular rate of 100-130, was started on Cardizem drip and admitted to CCU for further monitoring. Plan: 1. Atrial Fibrillation with Rapid vent. rate -RAte now improved on Cardizem drip, discontinued as per Cardio. -Continue Beta Blockers, PO Cardizem AC as per Cardio. On Eliquis. 2. s/p ICD Firing _ Device interrogation with normal results, - monitor rhythm on quality assurance monitor, check serial EKGs. 3. Hyperthyroidism- Free T4 elevated -Endocrinology consulted, Tapazole ordered PT rec. HWS. Will continue to monitor clinical status and follow closely. For transfer to [facility] when bed available Anticipate DC home when HR controlled.
--- NOTE | 2019-01-02 18:55 | PN ---
DATE: 01/02/2019 CARDIOLOGY FOLLOWUP SUBJECTIVE: The patient is comfortable and asymptomatic; however, she is still in atrial fibrillation with rapid ventricular rate despite increasing medications including increasing her beta-blockers as well as Cardizem. PHYSICAL EXAMINATION: VITAL SIGNS: Blood pressure 146/68 and heart rate is atrial fibrillation in the 120s. NECK: Negative JVD. LUNGS: Without rales. HEART: S1 and S2. EXTREMITIES: Without edema. LABORATORY DATA: BUN and creatinine are unremarkable. Chemistries are unremarkable. IMPRESSION: 1. Rapid ventricular rate secondary to atrial fibrillation. 2. Dilated cardiomyopathy. 3. Status post implantable cardioverter-defibrillator firing because of rapid ventricular rate. 4. Hypercholesterolemia. 5. Dilated cardiomyopathy. PLAN: Given these findings, we will increase her Cardizem to 60 t.i.d. We will increase her beta-ritchie to 100 daily. Ruben Bailey MD
--- NOTE | 2019-01-02 22:08 | PN ---
DATE: 01/02/2019 ENDO FOLLOWUP NOTE LOCATION: ICU 129, room 5. SUBJECTIVE: This is a 78-year-old female presenting here with rapid atrial fibrillation and underlying cardiac tachyarrhythmias and also a defibrillator in place and is now being followed closely for metabolic for clinical and is now being followed closely for clinical and hemodynamic monitoring in the ICU as noted. Moreover, she also has overt hyperthyroidism and is tolerating the medical therapy as given. LABORATORY DATA: Her latest thyroid studies showed a T4 of 11.6 mcg/dL with a TSH of less than 0.02. Her chemistries today showed a BUN of 17, sodium 140, potassium 4.3, chloride 103, CO2 of 28, glucose 110 and creatinine 0.8. ASSESSMENT AND PLAN: So at this time, we will continue the modified medical therapy with Tapazole given at a higher dosing of 20 mg b.i.d. as ordered. The thyroid antibodies, i.e., thyroid peroxidase antibody and a thyroid stimulating immunoglobulin levels are pending at this time and this will confirm and/or indicate the presence of underlying thyroid autoimmunity. We will continue the same dose regimen as ordered with Tapazole given as 20 mg b.i.d. and obtain serial thyroid studies, and adjust her dose regimen accordingly. For eventual discharge, we would recommend a lower dosing of Tapazole accordingly. We will follow. Vicki Min MD
[2019-01-03 06:12] LABS: HEMOGLOBIN 13.5 g/dL (12.0-16.0); MEAN CELL VOLUME 83.6 fl (80.0-105.0); MEAN CORPUSCULAR HEMOGLOBIN 25.4 pg (25.0-35.0); MEAN CORPUSCULAR HGB CONC 30.3 g/dl (31.0-37.0); RBC 5.32 10^6/uL (3.5-6.1); RED CELL DISTRIBUTION WIDTH 14.1 % (11.5-14.5); WHITE BLOOD COUNT 7.3 10^3/uL (4.5-11.0)
[2019-01-03 07:00] LABS: ALB/GLOB RATIO 1.3 (1.1-1.8); ALBUMIN 4.1 g/dL (3.0-4.8); ALT/SGPT 14 U/L (7-56); AST/SGOT 24 U/L (14-36); BLOOD UREA NITROGEN 21 mg/dL (7-21); CALCIUM 9.5 mg/dL (8.4-10.5); GFR NON-AFRICAN AMERICAN > 60
[2019-01-03] MEDS: Metoprolol Succinate 50 mg XL Tab PO SCH ×2 (08:02→13:10)
[2019-01-03] MEDS: DOFETILIDE 125 MCG PO SCH (11:30)
--- NOTE | 2019-01-03 12:38 | CP.PCM.PCO ---
Physician Communication Note - Physician Communication Note Physician Communication Note: patient for tele transfer, hr improved,rhthym converted to sinus rhthym
--- NOTE | 2019-01-03 12:44 | PN ---
DATE: 01/03/2019 SUBJECTIVE: I saw her resting comfortably in bed this morning in the intensive care unit. Her pulse was in the 120s; after I said good morning and she looked at me and said good morning back her pulse went to 174, has dropped to 150s, hung between 150 to 160 the whole time I was talking to her. The nurse came in when that happened. She did not do much at all, but talked to me and lay in bed. PHYSICAL EXAMINATION: VITAL SIGNS: 97.8 temperature, I saw the pulse go up from 130 to 174 in seconds, 122/65 blood pressure, 18 respiratory rate. HEAD: Atraumatic, normocephalic. HEART: Rapid. LUNGS: Decreased breath sounds, but clear. ABDOMEN: Soft. EXTREMITIES: No edema. LABORATORY DATA: She has 7.3 white count, 30.5 hemoglobin, 44.5 hematocrit with 362 platelets. She has sodium 139, potassium 4.7, BUN 21, creatinine 0.9, GFR is greater than 60, sugar is 101, calcium is 9.5. Total bilirubin is 2.3. AST is 0.5, ALT is 14, alk phos 104, total protein 7.2. TSH is still less than 0.02. ASSESSMENT AND PLAN: She is being seen by Endocrinology for the hyperthyroid, Cardiology for the rapid atrial fibrillation. I think she still needs to stay in the intensive care unit. I think the medicines need to be increased, they have been increased every day. She has rapid atrial fibrillation, dilated cardiomyopathy, hyperthyroidism. We will continue aggressive treatment and care. I will check her labs tomorrow. She has dilated cardiomyopathy. Rick Gottlieb DO
--- NOTE | 2019-01-03 15:14 | PN ---
DATE: 01/03/[address] Ruben Bailey. SUBJECTIVE: The patient is currently sitting on a chair. Denies any chest pain. Her breathing is comfortable on nasal O2 . PHYSICAL EXAMINATION: VITAL SIGNS: Blood pressure 122/65, heart rate 140, temperature 97.8 and respiration 20. HEENT: Normocephalic. CHEST: Absent breath sounds over the bases. HEART: S1 and S2, regular. ABDOMEN: Soft. EXTREMITIES: Trace edema. LABORATORY DATA: Recent hemoglobin and hematocrit 15.5 and 44.5, white count and platelet count are within normal limits. Today's SMA-7: Sodium 139, potassium 4.3, chloride 104, CO2 of 28, glucose 101, BUN 21, and creatinine 0.9. TSH less than 0.02. Echocardiogram study revealed mildly impaired left ventricular systolic dysfunction, severe mitral insufficiency, mild to moderate pulmonary hypertension, severely dilated left atrium. Chest x-ray revealed borderline cardiomegaly with prominent bronchovascular markings. Dual chamber pacemaker/ICD noted. ASSESSMENT: 1. Rapid atrial fibrillation. 2. Cardiomyopathy. 3. Mild to moderate pulmonary hypertension. 4. Hyperthyroidism. RECOMMENDATIONS: Continue Eliquis 5 mg once a day, Cardizem 60 mg every 6 hours, dofetilide 125 mcg once a day, Tapazole 20 mg twice a day and Toprol XL 100 mg once a day. Jerel Whitehead MD
[2019-01-03] MEDS ORDERED: Sodium Bicarbonate (8.4%) 50 mEq Vial ONE (16:59)
--- NOTE | 2019-01-03 22:13 | PN ---
DATE: 01/03/2019 ENDOCRINOLOGY FOLLOWUP NOTE LOCATION: CCU 129, room 5. SUBJECTIVE: This is a 78-year-old female presenting here with rapid atrial fibrillation and is now being followed closely for metabolic management. She also has recent onset of overt hyperthyroidism and is tolerating the medical therapy as initiated and given. She is also being followed closely here in the ICU for hemodynamic monitoring following a recent bout of rapid atrial fibrillation as noted. LABORATORY DATA: Her latest chemistry showed a BUN of 21, sodium 139, potassium 4.7, chloride 104, CO2 is 28, glucose 101, and creatinine 0.9. Her repeat TSH level is less than 0.02 and the T4 level done two days ago was 11.6 mcg/dL with the thyroid antibodies pending at this time. ASSESSMENT AND PLAN: So for now, we will continue the modified medical therapy given as Tapazole at 20 mg b.i.d. before meals as ordered. We will obtain serial chemistries and supplement accordingly as needed. We will follow. Vicki Min MD
[2019-01-04 07:45] LABS: FREE T4 1.56 ng/dL (0.78-2.19); T4 11.4 ug/dL (5.5-11.0)
[2019-01-04] MEDS: DOFETILIDE 125 MCG PO SCH ×2 (10:29→18:58)
[2019-01-04] MEDS: Metoprolol Succinate 50 mg XL Tab PO SCH (10:30)
--- NOTE | 2019-01-04 15:24 | PN ---
DATE: 01/04/2019 SUBJECTIVE: This is the first time I came into her room in the intensive care unit and the pulses are in the 60s. For the past three days, it was in the 170s. She is on Cardizem p.o., dofetilide, Eliquis, Lipitor, Pepcid, Tapazole and Toprol. She is feeling well. She is doing well. The pulse did not go up. PHYSICAL EXAMINATION: VITAL SIGNS: She has a 97.6 temperature, 63 pulse, 21 respiratory rate, 130/66 blood pressure. HEENT: Head is atraumatic, normocephalic. HEART: Regular rate. LUNGS: Clear to auscultation. ABDOMEN: Soft. EXTREMITIES: No edema. LABORATORY DATA: She has a 7.3 white count, 13.5 hemoglobin, 44.5 hematocrit with 362 platelets. She has a 139 sodium, potassium 4.7, BUN 21, creatinine 0.9, GFR greater than 60, sugars 101. Calcium is 9.5, magnesium 2.3, total bilirubin is 0.5, total protein 7.2. ASSESSMENT AND PLAN: She is being seen by a few physicians. She saw Dr. Min for hyperthyroid, Cardiology for the rapid atrial fibrillation. The first day it was stable at 60 in 3 days. She had a rapid atrial fibrillation, cardiomyopathy, pulmonary hypertension, hyperthyroidism. I am hoping that I could discharge her today given it is okay with Cardiology. We will continue with aggressive treatment and care. We will follow in the a.m. Rick Gottlieb DO
[2019-01-04 17:57] LABS: TSI <89 % baseline (<140)
--- NOTE | 2019-01-04 18:16 | PN ---
DATE: 01/04/2019 SUBJECTIVE: The patient denies any chest pain, dizziness or palpitation. PHYSICAL EXAMINATION: VITAL SIGNS: Blood pressure 118/49, heart rate 60, respiration 20 and temperature 97.8. HEENT: Normocephalic. CHEST: Diminished breath sounds over the bases. HEART: S1 and S2, regular. EXTREMITIES: No edema. ASSESSMENT: 1. Paroxysmal atrial fibrillation. 2. Cardiomyopathy, status post implantable cardioverter-defibrillator placement. 3. Hyperthyroidism. 4. Mild to moderate pulmonary hypertension. RECOMMENDATIONS: Case was discussed with RN NEW [facility] and with Dr. Dumont. The patient can be discharged from the cardiac point and Cardizem 60 mg every 6 hours, dofetilide 125 mcg twice a day, Eliquis 5 mg twice a day, Lipitor 40 mg once a day and Tapazole 20 mg twice a day and Toprol XL 100 mg daily. Jerel Whitehead MD
--- NOTE | 2019-01-04 19:23 | PN ---
DATE: 01/04/2019 ENDOCRINOLOGY FOLLOWUP NOTE LOCATION: In CCU 129, room 5. SUBJECTIVE: This is a 78-year-old female with rapid atrial fibrillation and underlying cardiac tachyarrhythmias with recent evaluations for hyperthyroidism and is now being followed closely for metabolic management. Repeat thyroid studies today showed a T4 of 11.4 mcg/dL with a free T4 of 1.56 and a TSH of less than 0.02. Her chemistry showed a BUN of 21, sodium 139, potassium 4.7, chloride 104, CO2 of 28, glucose 101, and creatinine 0.9. So, at this time, we will continue the medical therapy for overt hyperthyroidism with Tapazole given as 20 mg b.i.d. after meals as ordered. We will taper down her dose regimen upon discharge accordingly. We are waiting the reports of the thyroid antibodies, which will confirm and/or indicate the presence of underlying thyroid autoimmunity. We will obtain serial thyroid studies accordingly. Vicki Min MD
--- NOTE | 2019-01-05 09:07 | CT ---
Date of service: 01/05/2019 PROCEDURE: CT HEAD WITHOUT CONTRAST. HISTORY: change in mental status COMPARISON: None available. TECHNIQUE: Axial computed tomography images were obtained through the head/brain without intravenous contrast. Radiation dose: Total exam DLP = 848.01 mGy-cm. This CT exam was performed using one or more of the following dose reduction techniques: Automated exposure control, adjustment of the mA and/or kV according to patient size, and/or use of iterative reconstruction technique. FINDINGS: HEMORRHAGE: No intracranial hemorrhage. BRAIN: No mass effect or edema. There is moderate atrophy especially in the right occipital lobe. There is focal encephalomalacia and dilatation of the occipital horn. There is also encephalomalacia in the left lateral occipital lobe. There are no acute findings VENTRICLES: Unremarkable. No hydrocephalus. CALVARIUM: Unremarkable. PARANASAL SINUSES: Unremarkable as visualized. No significant inflammatory changes. MASTOID AIR CELLS: Unremarkable as visualized. No inflammatory changes. OTHER FINDINGS: None. IMPRESSION: No acute intracranial findings
[2019-01-05] MEDS: DOFETILIDE 125 MCG PO SCH ×2 (10:50→17:43)
[2019-01-05] MEDS: Metoprolol Succinate 50 mg XL Tab PO SCH (10:50)
--- NOTE | 2019-01-05 12:31 | PN ---
DATE: 01/05/2019 ENDO FOLLOWUP NOTE SUBJECTIVE: This is a 78-year-old female who is presenting here with rapid atrial fibrillation on the background of cardiac tachyarrhythmias and a defibrillator in place and is now being followed closely for metabolic management. Although, she remains clinically euthyroid, but biochemically is still has evidence of overt hyperthyroxinemia as noted. Her latest thyroid study showed a thyroxine level or T4 of 11.4, which is actually improved compared to the initial admitting level as noted. Her TSH is less than 0.02 with a free T4 of 1.56. Her chemistry showed a BUN of 21, sodium 139, potassium 4.7, chloride 104, CO2 of 28, glucose 101 and creatinine 0.9. So, at this time, we will continue the medical management for overt hyperthyroidism with Tapazole given as 20 mg twice a day after meals as ordered. We will obtain serial chemistries and supplement accordingly needed. We will follow. Vicki Min MD
--- NOTE | 2019-01-05 15:20 | CON ---
DATE OF CONSULTATION: 01/05/2019 HISTORY OF PRESENT ILLNESS: In short, the patient is a 78-year-old female with multiple medical issues including atrial fibrillation, hypertension, hysterectomy and CVA. The patient came to the hospital for defibrillator dysfunction. Psych consult was called for evaluation of possible depressive symptoms. The patient was seen and examined today in CCU. The patient presented to be alert and oriented. The patient knows the circumstances of her admission. The patient reported that she was looking for apartment in the community because she cannot stay with her sister any longer because they are not getting along. The patient reported that at present moment there is no way that she wants to go back to her sister's house. The patient reported that she was mildly upset, but not depressed. The patient reported that she does not feel hopeless or helpless. The patient denied hearing voices, denied seeing things. The patient denied history of psychiatric illnesses. The patient does not present to be in any type of distress. Collaterals were obtained from the nursing staff. As per nursing staff, the patient has episodes of confusion. The patient was looking for her room and was not able to find it. This scientific writer cannot exclude that the patient was in delirium stage. PHYSICAL EXAMINATION: VITAL SIGNS: Meanwhile, vital signs seemed to be stable. Pulse is 75, blood pressure 105/63, respirations 13, oxygen saturation is 98. MEDICATIONS: Reviewed. The patient is on Colace, Lipitor, Cardizem, Pepcid, Tapazole, Toprol. LABORATORY DATA: Labs reviewed, seems to be within normal limits. Coagulation within normal limits. Chemistry, TSH seems to be low. This scientific writer reviewed previous history. The patient had never been admitted to the psychiatric inpatient unit, and this scientific writer had never been involved into the patient's care. MENTAL STATUS EXAMINATION: The patient appears to be alert and oriented. The patient knows that she is in the hospital. Intermittent eye contact. Mood described "I'm not hopeless, I feel hopeful for the future." Affect was constricted but reactive. Mood congruent. Thought process coherent and goal directed. Thought content, the patient denied visual, auditory, or tactile hallucinations. Denied paranoid ideation. The patient denied thoughts of harming herself or others. Denied intent or plan. Insight and judgment seemed to be improving. Impulses are well controlled. IMPRESSION: The patient presented very well during this scientific writer interview, but as per nursing report, the patient appears to be confused yesterday. This scientific writer cannot exclude that the patient was in delirium stage, which seems to be improving. Rule out adjustment disorder because the patient recently moved out from her sister's apartment and has no place to go. PLAN: This scientific writer educated the patient about boarding homes. The patient has income. 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 At present moment, there is no safe discharge plan. Discussed with Dr. Gottlieb. From the psychiatric standpoint, the patient is stable. This scientific writer will not implement any psychotropic medications. This scientific writer will sign off. Should you have any questions give me a call back. Arianna Joe MD MTDD
--- NOTE | 2019-01-05 17:23 | PN ---
DATE: 01/05/2019 SUBJECTIVE: She is in the intensive care unit. Her heart rate is 64, we are trying to get it to . Her heart rate has been stable for the past 48 hours, which is great. She was as high as 174. She is pleasantly confused. The psychiatrist called in this morning and told me to keep her till Monday. She would like her to go to a boarding house, I think there is a problem where she would live with family or not. They cannot take care of her anymore for I understand. PHYSICAL EXAMINATION: VITAL SIGNS: She has a 98 temp, 73 pulse, 18 respiratory rate, 105/63 blood pressure, 98% O2 sat. HEENT: Atraumatic, normocephalic. HEART: Regular rate. LUNGS: Decreased breath sounds. ABDOMEN: Soft. EXTREMITIES: No edema. NEUROLOGIC: She is pleasantly confused. LABORATORY DATA: She has a 139 sodium, potassium 4.7, BUN 21, creatinine 0.9, GFR is greater than 60, sugar is 101, total bili is 0.5. AST is 24, ALT is 14, alk phos 104, total protein 7.2. TSH is 0.02 for hyperthyroidism. ASSESSMENT: She is pleasantly confused and we will see how we make it over the weekend. She is being seen by Endocrinology and Cardiology. The nurse practitioner, Elva Demarco, reviewed her note. We will continue with aggressive treatment and care on Mansi Jones. Rick Gottlieb DO MTDD
--- NOTE | 2019-01-05 18:49 | PN ---
DATE: 01/05/2019 SUBJECTIVE: The patient currently in sinus rhythm. She denies any chest pain or shortness of breath. Discharge was postponed because apparently the patient's sister whom she lives with refused to accept her back at home. PHYSICAL EXAMINATION VITAL SIGNS: Blood pressure on 107/65, heart rate 64, temperature 98, respiration 20. HEENT: Normocephalic. CHEST: Clear. HEART: Sounds regular. ABDOMEN: Soft. EXTREMITIES: No edema. LABORATORY DATA: Head CT scan without contrast, no acute intracranial findings. CURRENT MEDICATIONS: Cardizem at 60 mg every 6 hours., Eliquis 5 mg once a day, Lipitor 40 mg once a day, 40 mg once a day, Tapazole 20 mg twice a day, Toprol-XL 100 mg once a day. ASSESSMENT: 1. Paroxysmal atrial fibrillation. 2. Cardiomyopathy, status post implantable cardioverter-defibrillator placement. 3. Hyperthyroidism. 4. [id number]-tiulmpbk pulmonary hypertension. 6. Placement problem. Jerel Whitehead MD
--- NOTE | 2019-01-05 21:01 | CON ---
DATE: 01/05/2019 HISTORY OF PRESENT ILLNESS: This is a 78-year-old black female, with past medical history of atrial fibrillation, cardiomyopathy, hypertension, and CVA, came to the hospital because of unexplained shock of her implanted defibrillator. The patient felt shock and came here by ambulance. Reported to be nervous, tremulous. No nausea. No vomiting. Called to evaluate the patient. PAST MEDICAL HISTORY: Hypertension, CVA, and atrial fibrillation. ALLERGY: NO KNOWN DRUG ALLERGY. SOCIAL HISTORY: Does not smoke; does not drink. PHYSICAL EXAMINATION: HEENT: Normocephalic, atraumatic. NECK: Supple. NEUROLOGIC: Alert, awake, and oriented to x3. No aphasia. Cranial nerves II through XII are tested. Pupils reactive. EOM intact. Visual field full. No facial asymmetry. Tongue midline. Motor examination; moves all the extremities equally. Tone normal. Deep tendon reflexes 1+. Both plantars are downgoing. Sensory appears intact. Cerebellar gait deferred. IMPRESSION: A 78-year-old female with defibrillator malfunction and also called to evaluate for change in mental status. PLAN: The patient is doing better. CAT scan of the head was done which was reported negative. Continue present management. We will follow up. Antonio Cruz MD
[2019-01-06 07:24] LABS: ALB/GLOB RATIO 1.2 (1.1-1.8); ALBUMIN 4.4 g/dL (3.0-4.8); ALT/SGPT 9 U/L (7-56); AST/SGOT 28 U/L (14-36); BLOOD UREA NITROGEN 22 mg/dL (7-21); CALCIUM 9.3 mg/dL (8.4-10.5); GFR NON-AFRICAN AMERICAN > 60
[2019-01-06 07:51] LABS: HEMOGLOBIN 13.7 g/dL (12.0-16.0); MEAN CELL VOLUME 84.1 fl (80.0-105.0); MEAN CORPUSCULAR HEMOGLOBIN 25.3 pg (25.0-35.0); MEAN CORPUSCULAR HGB CONC 30.1 g/dl (31.0-37.0); MEAN PLATELET VOLUME 11.8 fl (7.0-11.0); RBC 5.41 10^6/uL (3.5-6.1); RED CELL DISTRIBUTION WIDTH 14.3 % (11.5-14.5); WHITE BLOOD COUNT 8.2 10^3/uL (4.5-11.0)
[2019-01-06] MEDS: Metoprolol Succinate 50 mg XL Tab PO SCH (11:05)
[2019-01-06] MEDS: DOFETILIDE 125 MCG PO SCH ×2 (11:06→17:35)
--- NOTE | 2019-01-06 14:30 | PN ---
DATE: 01/06/2019 SUBJECTIVE: I saw her sitting up in bed. She is presently doing well. She understands the situation. She knows that she needs to leave here soon. She is on Cardizem, dofetilide, Eliquis, Lipitor, Pepcid, Tapazole and Toprol. She is eating well, walking better to the bathroom. PHYSICAL EXAMINATION: VITAL SIGNS: Temperature 97.7, 60 pulse which is great, 115/63 blood pressure, 20 respiratory rate, 100% O2 sat on room air. HEAD: Atraumatic, normocephalic. HEART: Regular rate. LUNGS: Decreased breath sounds but clear. ABDOMEN: Soft. EXTREMITIES: No edema. She was seen by Psychiatry, Neurology, and Cardiology. The psychiatrist told me that she has to stay until they could get her to a boarding home. A nursing home social worker evaluation needs to be done. She could Until she gets to the boarding home, it is unsafe for her to be discharged. Neurology, he was happy with her neurologically. PLAN: She is mentally in out of it. I do agree that she needs a boarding home kind of situation. Hopefully, we can do that tomorrow with [employer] and case management. Continue care, monitoring her pulse. Medications as per Psychiatry, Neurology, and Cardiology. Rick Gottlieb DO [facility]
--- NOTE | 2019-01-06 14:38 | PN ---
DATE: 01/06/2019 SUBJECTIVE: The patient denies any chest pain. PHYSICAL EXAMINATION: VITAL SIGNS: Blood pressure 115/63, heart rate 60, temperature 97.7, respirations 20. HEENT: Normocephalic. CHEST: Clear. HEART: S1, S2 regular. EXTREMITIES: No edema. LABORATORY DATA: Hemoglobin and hematocrit 16.7 and 45.5. White count and platelet counts are within normal limits. Today's SMA-7 is within normal limits except for BUN of 22. ASSESSMENT: 1. Paroxysmal atrial fibrillation. 2. Cardiomyopathy, status post implantable cardioverter-defibrillator placement. 3. Hyperthyroidism. 4. Nuqk-yl-yultmwrb hypertension. RECOMMENDATION: Continue Cardizem at 60 mg every 6 hours, dofetilide 125 mcg once a day, Eliquis 5 mg twice a day, Lipitor 40 mg daily, Pepcid 20 mg once a day, Tapazole 20 mg once a day and Toprol XL 100 mg once a day. Jerel Whitehead MD
--- NOTE | 2019-01-06 19:22 | PN ---
DATE: 01/06/2019 ENDO FOLLOWUP NOTE LOCATION: Room 368. SUBJECTIVE: This is a 78-year-old female with recent admission for rapid atrial fibrillation on the background of significant cardiac tachyarrhythmias and is now being followed closely for metabolic management. Also of recent hyperthyroidism as noted as noted thereof. PHYSICAL EXAMINATION GENERAL: Text. VITAL SIGNS: Text. HEENT: Text. NECK: Text. CARDIOPULMONARY: Text. LUNGS: Text. ABDOMEN: Text. EXTREMITIES: Text. LABORATORY DATA: A repeat thyroid study showed a T4 of 11.4 with a free T4 of 1.56 and a TSH of less than 0.02. Her chemistries today showed a BUN of 22, sodium 138, potassium 5.0, chloride 103, CO2 of 28, glucose 99 and creatinine 0.9. ASSESSMENT AND PLAN: So at this time, we will continue the modified . We will obtain serial chemistries and supplement accordingly needed. We will follow. Vicki Min MD
[2019-01-07 06:37] LABS: HEMOGLOBIN 13.7 g/dL (12.0-16.0); MEAN CELL VOLUME 84.8 fl (80.0-105.0); MEAN CORPUSCULAR HEMOGLOBIN 25.4 pg (25.0-35.0); MEAN CORPUSCULAR HGB CONC 29.9 g/dl (31.0-37.0); MEAN PLATELET VOLUME 11.9 fl (7.0-11.0); RBC 5.4 10^6/uL (3.5-6.1); RED CELL DISTRIBUTION WIDTH 14.2 % (11.5-14.5); WHITE BLOOD COUNT 9.2 10^3/uL (4.5-11.0)
[2019-01-07 07:32] LABS: ALB/GLOB RATIO 1.2 (1.1-1.8); ALBUMIN 4.5 g/dL (3.0-4.8); ALT/SGPT 10 U/L (7-56); AST/SGOT 28 U/L (14-36); BLOOD UREA NITROGEN 25 mg/dL (7-21); CALCIUM 9.6 mg/dL (8.4-10.5); GFR NON-AFRICAN AMERICAN 54
[2019-01-07] MEDS: Metoprolol Succinate 50 mg XL Tab PO SCH (09:09)
[2019-01-07] MEDS: DOFETILIDE 125 MCG PO SCH ×2 (09:09→17:15)
--- NOTE | 2019-01-07 09:57 | CP.PCM.PN ---
Subjective - Date & Time of Evaluation Date of Evaluation: 01/07/19 Time of Evaluation: 07:40 - Subjective Subjective: Progress Note for Dr. Min (Endocrine) Service JACEY Miller DO PGY-3 Patient seen and examined at bedside. No acute complaints at time of exam, and no acute events reported overnight as per nursing. Patient reports feeling better overall. Denies symptoms of chest palpitations, warm/cold intolerance, shortness of breath, anxiety, chest pain. Relaxed affect and mood. Objective - Vital Signs/Intake and Output Vital Signs (last 24 hours): Temp Pulse Resp BP Pulse Ox 97.4 F L 61 20 141/62 100 01/07/19 08:09 01/07/19 09:09 01/07/19 08:09 01/07/19 09:09 01/07/19 08:09 Intake and Output: 01/07/19 01/07/19 06:59 18:59 Intake Total 1340 Output Total 700 Balance 640 - Medications Medications: Current Medications Apixaban (Eliquis) 5 mg PO Q12 [facility]; Protocol Last Admin: 01/07/19 09:08 Dose: 5 mg Atorvastatin Calcium (Lipitor) 40 mg PO DAILY [facility] Last Admin: 01/07/19 09:09 Dose: 40 mg Diltiazem HCl (Cardizem) 60 mg PO Q6 [facility] Last Admin: 01/07/19 05:21 Dose: 60 mg Famotidine (Pepcid) 40 mg PO HS [facility] Last Admin: 01/06/19 21:47 Dose: 40 mg Methimazole (Tapazole) 20 mg PO BID [facility] Last Admin: 01/07/19 09:09 Dose: 20 mg Metoprolol Succinate (Toprol Xl) 100 mg PO DAILY [facility] Last Admin: 01/07/19 09:09 Dose: 100 mg Non-Formulary Medication (Dofetilide [Dofetilide]) 125 mcg PO BID [facility] Last Admin: 01/07/19 09:09 Dose: 125 mcg - Labs Labs: 01/07/19 06:15 01/07/19 06:15 APTT 39.3 Seconds (26.9-38.3) H 12/30/18 09:06 - Constitutional Appears: Non-toxic, No Acute Distress - Head Exam Head Exam: ATRAUMATIC, NORMAL INSPECTION, NORMOCEPHALIC - Eye Exam Eye Exam: EOMI, Normal appearance. absent: Conjunctival injection, Scleral icterus Pupil Exam: absent: Irregular, Unequal - ENT Exam ENT Exam: Mucous Membranes Moist - Neck Exam Neck Exam: absent: Lymphadenopathy, Thyromegaly - Respiratory Exam Respiratory Exam: Clear to Ausculation Bilateral, NORMAL BREATHING PATTERN. absent: Accessory Muscle Use, Chest Wall Tenderness, Decreased Breath Sounds, Rales, Rhonchi, Wheezes - Cardiovascular Exam Cardiovascular Exam: REGULAR RHYTHM, RRR, +S1, +S2. absent: Bradycardia, Tachycardia, Irregular Rhythm, JVD, +S4 - GI/Abdominal Exam GI & Abdominal Exam: Soft, Normal Bowel Sounds. absent: Distended, Firm, Guarding, Rigid, Tenderness - Extremities Exam Extremities Exam: Normal Capillary Refill, Normal Inspection - Neurological Exam Additional comments: awake and alert, moving all extremities on command, motor appears grossly intact and equal bilaterally - Psychiatric Exam Additional comments: relaxed mood/affect - Skin Skin Exam: Dry, Intact, Normal Color, Warm Assessment and Plan - Assessment and Plan (Free Text) Assessment: This is a 78 yo AA F with PMH of AFib s/p ablation, VFib s/p ICD, prior CVA, HTN, and HLD who presented with complaint of ICD firing x2, and was found to be in AFib with RVR. Endocrine consulted for hyperthyroidism, currently being treated on Tapazole. Plan: 1) ICD firing x2 2) AFib s/p ablation, RVR now resolved 3) VFib s/p ICD 4) hx CVA without residual deficit 5) HTN 6) HLD 7) Hyperthyroidism 8) Hyperkalemia -continue Tapazole 20mg BID remains clinically euthyroid, normotensive and normocardic currently chemically hyperthyroid, most recent TSH/T4/Free T4 from 01/04: <0.02/11.4/1.56 -kayexalate ordered by PMD for Hyperkalemia, continue to monitor electrolytes Will discuss with attending, Dr. Min
--- NOTE | 2019-01-07 10:28 | CP.PCM.PCO ---
Physician Communication Note - Physician Communication Note Physician Communication Note: [facility]med[facility] d[facility]
[2019-01-07 12:44] VITALS: PULSE 60
[2019-01-07 17:23] VITALS: BP 115/59
--- NOTE | 2019-01-07 17:59 | PN ---
DATE: 01/07/2019 ENDO FOLLOWUP NOTE ROOM: 368 SUBJECTIVE: This is a 78-year-old female with overt hyperthyroidism noted both historically, clinically and biochemically, most likely related to underlying autoimmune thyroiditis and is now being followed closely for metabolic management. Her latest thyroid studies showed a T4 of 11.4 mcg/dL with a free T4 of 1.56 and a TSH of less than 0.02. So at this time, we will continue the medical therapy given for hyperthyroidism with Tapazole at 20 mg b.i.d. after meals as ordered. Eventually, when she is discharged, would recommend a lower dosing of Tapazole given as 10 mg b.i.d. after meals as ordered. We will obtain serial thyroid studies and adjust her dose regimen accordingly. Vicki Min MD
[2019-01-07 18:09] VITALS: RESP 18; TEMP 98.2; O2SAT 98
--- NOTE | 2019-01-07 18:11 | PN ---
DATE: 01/07/2019 SUBJECTIVE: The patient denies any chest pain or palpitation. PHYSICAL EXAMINATION: VITAL SIGNS: Blood pressure 141/62, heart rate 61, temperature 97.4, respirations 20. HEENT: Normocephalic. CHEST: Clear. HEART: S1, S2, regular. EXTREMITIES: No edema. LABORATORY DATA: Today's hemoglobin, hematocrit, white count and platelet counts are within normal limits. Today's potassium is 5.4. ASSESSMENT: 1. Paroxysmal atrial fibrillation. 2. Mild hyperkalemia. 3. Cardiomyopathy, status post implantable cardioverter-defibrillator placement. 4. Hyperthyroidism. 5. Yiik-uk-lbukyomd pulmonary hypertension. RECOMMENDATIONS: Continue Cardizem at 60 mg every 6 hours, dofetilide at 125 mcg once a day, Eliquis 5 mg twice a day, Lipitor 40 mg once a day, Tapazole 20 mg once a day and Toprol XL 100 mg once a day. The patient did receive Kayexalate 15 g p.o. today and follow up BMP in the a.m. is recommended. Jerel Whitehead MD
--- NOTE | 2019-01-07 21:02 | DS ---
HISTORY OF PRESENT ILLNESS: She is here waiting for case management social worker, case management to help her get into a boarding home, that is with psychiatrist recommended for her be the best place for her. PHYSICAL EXAMINATION: VITAL SIGNS: She has a 97.4 temperature, 61 pulse, 141/62 blood pressure, 20 respiratory rate 100, O2 sat on room air. HEENT: Head is atraumatic, normocephalic. HEART: Regular rate. LUNGS: Decreased breath sounds, but clear. ABDOMEN: Soft. EXTREMITIES: No edema. MEDICATIONS: She is on Cardizem, dofetilide, Eliquis, Lipitor, Pepcid, Tapazole and Toprol. LABORATORY DATA: White count 7.2, hemoglobin 30.7, hematocrit 45.8, platelets of 415. Sodium 138, potassium 5.4. I will give her Kayexalate today. BUN is 25, creatinine GFR is 54, sugar is 104, calcium 9.6, total bili is 0.7, AST is 28, ALT is 10, alk phos 124, total protein 3.2. ASSESSMENT AND PLAN: The plan is to hopefully get her home today on a boarding home. She is being seen by Endocrinology, Cardiology, Neurology and hopefully she will be discharged. We will get her dose of Kayexalate. I will follow on the outpatient. She goes to boarding home in the with rapid atrial fibrillation, hyperthyroid. Rick Gottlieb DO MTDD
== END 2019-01-07 18:48 | disposition home or self-care (01) | DRG 310 ==
LOC: ED 08:24 → ERH 12:57 → CCU 21:16 → OBSVTOIN 12-31 09:26 → 3RNO 01-05 20:18
PROVIDERS: ADMIT Family Medicine; ATTEND Family Medicine
DX: I48.0 Paroxysmal atrial fibrillation (principal); E05.90 Thyrotoxicosis, unspecified without thyrotoxic crisis or storm; I42.0 Dilated cardiomyopathy; I10 Essential (primary) hypertension; E11.9 Type 2 diabetes mellitus without complications; E78.00 Pure hypercholesterolemia, unspecified; F43.20 Adjustment disorder, unspecified; E78.5 Hyperlipidemia, unspecified; I49.01 Ventricular fibrillation; I27.20 Pulmonary hypertension, unspecified; E87.5 Hyperkalemia; F17.210 Nicotine dependence, cigarettes, uncomplicated; Z86.73 Personal history of transient ischemic attack (TIA), and cerebral infarction without residual deficits; Z79.01 Long term (current) use of anticoagulants; Z79.899 Other long term (current) drug therapy; Z95.810 Presence of automatic (implantable) cardiac defibrillator